=== PATIENT | male | born 1960 ===

== ENCOUNTER 2023-06-15 11:40 | Outpatient (AMB) | payer OTHER, SELFPAY ==
--- NOTE | 2023-06-15 11:45 | HO.NEPHOV_ITS ---
HPI HPI Comments History of Present Illness Details I had the privilege of seeing Anshul in follow-up of his mild chronic kidney disease and recurrent nephrolithiasis. He still has ongoing renal stone issue. He follows up with a urologist. He has not tolerated chlorthalidone in the past(he thinks it is causing him pedal edema). He continues to take potassium citrate. He does not have any fever, suprapubic pain, flank pain, hematuria, nausea, vomiting, shortness of breath, pedal edema, orthostatic symptoms at this visit. He is compliant with his medications. He keeps himself hydrated well. He avoids nonsteroidal anti-inflammatory medications. [facility] Medical History (Updated 06/15/23 @ 12:10 by Miguel Patricia MD) Renal cyst Hypertension Calculus of kidney Chronic kidney disease, stage 2 (mild) Surgical History (Updated 06/15/23 @ 11:54 by Joy Rios MA) History of eye surgery H/O endoscopy H/O colonoscopy History of tonsillectomy History of kidney surgery Family History Mother Hypertension Father Hypertension Social History (Updated 06/15/23 @ 11:53 by Joy Rios MA) Alcohol intake: never Patient Tobacco Use Status: Never used Tobacco Vital Signs 06/15/23 11:49 Height 5 ft 8 in Weight 212 lb 6 oz BMI 32.3 BP 134/80 Blood Pressure Location Lt brachial Position Sitting Pulse 106 H Pulse Source Pulse Oximeter Physical Exam Vital Signs: Last Vital Signs Pulse 106 H 06/15/23 11:49 BP 134/80 06/15/23 11:49 BMI result Body Mass Index 32.3 Const General: comfortable and no acute distress Orientation/consciousness: patient oriented x3 HEENT Head: Yes normocephalic Mouth: Normal oral and palatal mucosa present Eyes EOM: EOMs intact bilaterally Neck Neck: Yes supple Resp Auscultation: clear to auscultation bilaterally Cardio Jugular venous distension: no JVD Rate: regular rate GI Palpation (GI): Soft to palpation Auscultation: normal bowel sounds General: Yes no CVA tenderness Back/Spine/Pelvis Back: no CVA tenderness Skin General skin exam: no rashes or lesions noted Neuro General: patient oriented x3 and moves all extremities Extrem General: Yes no pedal edema Assessment & Plan Assessment & Plan (1) Calculus of kidney: Code(s): N20.0 - Calculus of kidney Plan Anshul has mild CKD which had been stable at baseline. He has recurrent nephrolithiasis. He had multiple ESWL 's. He has not tolerated hydrochlorothiazide or chlorthalidone in the past(he feels both of them are causing leg swellings). He is on potassium citrate. He follows up with urologist. He should cut back animal protein in the diet . He should maintain low-salt diet. He is maintaining good hydration. He is avoiding nonsteroidal anti-inflammatory medications. His blood pressure has been at goal. He is not known to have any significant proteinuria. I did not make any medication changes today. I refilled his potassium citrate today. All his questions and concerns were addressed. Time spent retrieving data, clinical encounter and documentation 23 minutes. Follow-up given. Orders: Orders Electrolytes Today N20.0 - Calculus of kidney Creatinine Today N20.0 - Calculus of kidney Blood Urea Nitrogen Today N20.0 - Calculus of kidney Medications: New potassium citrate ER 15 mEq PO DAILY 30 tabs 11RF 30 days Coding Level of Care Code Est Pt Level 3 (81949) Diagnoses Calculus of kidney N20.0 Results Reviewed Nephrology Results: No Data to Display
[2023-06-15 11:49] VITALS: BP 134/80; PULSE 106; BMI 32.3
== END 2023-06-15 12:13 | disposition home or self-care (01) ==
PROVIDERS: PCP Internal Medicine; Visit Provider Internal Medicine Nephrology
DX: N20.0 Calculus of kidney (principal)
CPT/HCPCS: 99213

== ENCOUNTER → 2023-06-15 11:40 | Outpatient (BNVA) | payer OTHER, SELFPAY | PROVIDERS: PCP Internal Medicine; Visit Provider Internal Medicine Nephrology | DX: N20.0 Calculus of kidney (principal) | CPT/HCPCS: 99212 ==

== ENCOUNTER 2023-10-20 13:50 | Outpatient (AMB) | payer OTHER, SELFPAY ==
[2023-10-20 14:17] VITALS: BP 124/80; PULSE 88; O2SAT 95; BMI 32.2
--- NOTE | 2023-10-20 14:17 | HO.NEPHOV_ITS ---
HPI HPI Comments History of Present Illness Details I had the privilege of seeing Anshul in follow-up of his mild chronic kidney disease and recurrent nephrolithiasis. He still has ongoing renal stone issue. He follows up with a urologist. He has not tolerated chlorthalidone in the past(he thinks it is causing him pedal edema). He continues to take potassium citrate. He does not have any fever, suprapubic pain, flank pain, hematuria, nausea, vomiting, shortness of breath, pedal edema, orthostatic symptoms at this visit. He is compliant with his medications. He keeps himself hydrated well. He avoids nonsteroidal anti-inflammatory medications. [facility] Medical History (Updated 10/20/23 @ 14:27 by Miguel Patricia MD) Renal cyst Hypertension Calculus of kidney Chronic kidney disease, stage 2 (mild) Surgical History History of neck surgery History of eye surgery H/O endoscopy H/O colonoscopy History of tonsillectomy History of kidney surgery Family History Mother Hypertension Father Hypertension Social History Alcohol intake: never Patient Tobacco Use Status: Never used Tobacco Vital Signs 10/20/23 14:17 Height 5 ft 8 in Weight 211 lb 8 oz BMI 32.2 BP 124/80 Blood Pressure Location Lt brachial Position Sitting Pulse 88 Pulse Source Pulse Oximeter Pulse Oximetry (%) 95 Oxygen Delivery Method Room Air Physical Exam Vital Signs: Last Vital Signs Pulse 88 10/20/23 14:17 BP 124/80 10/20/23 14:17 Pulse Ox 95 10/20/23 14:17 Oxygen Delivery Method Room Air 10/20/23 14:17 BMI result Body Mass Index 32.2 Const General: comfortable and no acute distress Orientation/consciousness: patient oriented x3 HEENT Head: Yes normocephalic Mouth: Normal oral and palatal mucosa present Eyes EOM: EOMs intact bilaterally Neck Neck: Yes supple Resp Auscultation: clear to auscultation bilaterally Cardio Jugular venous distension: no JVD Rate: regular rate GI Palpation (GI): Soft to palpation Auscultation: normal bowel sounds General: Yes no CVA tenderness Back/Spine/Pelvis Back: no CVA tenderness Skin General skin exam: no rashes or lesions noted Neuro General: patient oriented x3 and moves all extremities Extrem General: Yes no pedal edema Assessment & Plan Assessment & Plan (1) Calculus of kidney: Code(s): N20.0 - Calculus of kidney (2) Renal cyst: Code(s): N28.1 - Cyst of kidney, acquired (3) Chronic kidney disease, stage 2 (mild): Code(s): N18.2 - Chronic kidney disease, stage 2 (mild) Sera Landers has mild CKD which had been stable at baseline. He has recurrent nephrolithiasis. He had multiple ESWL 's. He has not tolerated hydrochlorothiazide or chlorthalidone in the past(he feels both of them are causing leg swellings). He is on potassium citrate. He doesn't want any higher dose. He follows up with urologist. He should cut back animal protein in the diet . He should maintain low-salt diet. He is maintaining good hydration. He is avoiding nonsteroidal anti-inflammatory medications. His blood pressure has been at goal. He is not known to have any significant proteinuria. I did not make any medication changes today. labs ordered. All his questions and concerns were addressed. Orders: Orders Calcium Today N18.2 - Chronic kidney disease, stage 2 (mild), N20.0 - Calculus of kidney, N28.1 - Cyst of kidney, acquired Electrolytes Today N18.2 - Chronic kidney disease, stage 2 (mild), N20.0 - Calculus of kidney, N28.1 - Cyst of kidney, acquired Blood Urea Nitrogen Today N18.2 - Chronic kidney disease, stage 2 (mild), N20.0 - Calculus of kidney, N28.1 - Cyst of kidney, acquired Creatinine Today N18.2 - Chronic kidney disease, stage 2 (mild), N20.0 - Calculus of kidney, N28.1 - Cyst of kidney, acquired Coding Level of Care Code Est Pt Level 4 (49702) Diagnoses Calculus of kidney N20.0 Renal cyst N28.1 Chronic kidney disease, stage 2 (mild) N18.2 Results Reviewed Nephrology Results: No Data to Display
== END 2023-10-20 14:53 | disposition home or self-care (01) ==
PROVIDERS: PCP Internal Medicine; Visit Provider Internal Medicine Nephrology
DX: N20.0 Calculus of kidney (principal); N28.1 Cyst of kidney, acquired; N18.2 Chronic kidney disease, stage 2 (mild)
CPT/HCPCS: 99214

== ENCOUNTER → 2023-10-20 13:50 | Outpatient (BNVA) | payer OTHER, SELFPAY | PROVIDERS: PCP Internal Medicine; Visit Provider Internal Medicine Nephrology | DX: N20.0 Calculus of kidney (principal); N18.2 Chronic kidney disease, stage 2 (mild); N28.1 Cyst of kidney, acquired | CPT/HCPCS: 36415; 80051; 82310; 82565; 84520; 99212 ==

== ENCOUNTER 2023-10-20 15:07 | Outpatient (REF) | payer OTHER, SELFPAY ==
[2023-10-20 19:41] LABS: Anion Gap 15 (12-20); Blood Urea Nitrogen 15 mg/dL (9-16); Calcium 10.1 mg/dL (8.4-10.2); Carbon Dioxide 27 mmol/L (22-29); Chloride 104 mmol/L (96-108); Estimated Glomerular Filt Rate 52; Potassium 4.4 mmol/L (3.3-5.1); Sodium 142 mmol/L (135-145)
== END 2023-10-20 15:08 | disposition home or self-care (01) ==
LOC: HO.HKASLDS 15:07
PROVIDERS: Visit Provider Internal Medicine Nephrology
DX: Z13.89 Encounter for screening for other disorder (principal)
CPT/HCPCS: 36415; 80051; 82310; 82565; 84520

== ENCOUNTER 2024-03-08 11:34 | Outpatient (AMB) | payer OTHER, SELFPAY ==
--- NOTE | 2024-03-08 12:11 | HO.NEPHOV ---
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 Required: No Accompanied by: Self / Same As Patient Allergies hydrochlorothiazide Allergy (Unknown, Verified 03/08/24 12:14) EDEMA ibuprofen [From MOTRIN] Allergy (Unknown, Verified 03/08/24 12:14) AFFECTS KIDNEYS,SEVERE REACTION acetaminophen Allergy (Verified 03/08/24 12:14) Unknown clonidine Allergy (Verified 03/08/24 12:14) Unknown gabapentin Allergy (Verified 03/08/24 12:14) Unknown melatonin Allergy (Verified 03/08/24 12:14) Unknown naproxen Allergy (Verified 03/08/24 12:14) Unknown oxycodone Allergy (Verified 03/08/24 12:14) Unknown quetiapine Allergy (Verified 03/08/24 12:14) Unknown HPI Comments Details: I had the privilege of seeing Anshul in follow-up of his mild chronic kidney disease and recurrent nephrolithiasis. He still has ongoing renal stone issue. He follows up with a urologist. He has not tolerated chlorthalidone in the past(he thinks it is causing him pedal edema). He continues to take potassium citrate. He does not have any fever, suprapubic pain, flank pain, hematuria, nausea, vomiting, shortness of breath, pedal edema, orthostatic symptoms at this visit. He is compliant with his medications. He keeps himself hydrated well. He avoids nonsteroidal anti-inflammatory medications. He was started on Allopurinol by Urologist in [place] ( [facility] [place]) but he is not taking it( concerned about side effects). [facility] Medical History (Updated 10/20/23 @ 14:27 by Miguel Patricia MD) Renal cyst Hypertension Calculus of kidney Chronic kidney disease, stage 2 (mild) Surgical History History of neck surgery History of eye surgery H/O endoscopy H/O colonoscopy History of tonsillectomy History of kidney surgery Family History Mother Hypertension Father Hypertension Social History Alcohol intake: never Patient Tobacco Use Status: Never used Tobacco Review of Systems Const All systems reviewed & are unremarkable except as noted in HPI and below Physical Exam Vital Signs: Last Vital Signs Pulse 98 03/08/24 12:12 BP 124/80 03/08/24 12:12 Pulse Ox 94 03/08/24 12:12 Oxygen Delivery Method Room Air 03/08/24 12:12 BMI result Body Mass Index 31.5 Const General: comfortable and no acute distress Orientation/consciousness: patient oriented x3 HEENT Head: Yes normocephalic Mouth: Normal oral and palatal mucosa present Eyes EOM: EOMs intact bilaterally Neck Neck: Yes supple Resp Auscultation: clear to auscultation bilaterally Cardio Jugular venous distension: no JVD Rate: regular rate GI Palpation (GI): Soft to palpation Auscultation: normal bowel sounds General: Yes no CVA tenderness Back/Spine/Pelvis Back: no CVA tenderness Skin General skin exam: no rashes or lesions noted Neuro General: patient oriented x3 and moves all extremities Extrem General: Yes no pedal edema Results Reviewed Nephrology Results: Sodium 142 mmol/L (135-145) 10/20/23 Potassium 4.4 mmol/L (3.3-5.1) 10/20/23 Chloride 104 mmol/L (96-108) 10/20/23 Carbon Dioxide 27 mmol/L (22-29) 10/20/23 BUN 15 mg/dL (9-16) 10/20/23 Creatinine 1.37 mg/dL (0.5-1.4) 10/20/23 Calcium 10.1 mg/dL (8.4-10.2) 10/20/23 Assessment & Plan Assessment & Plan (1) Renal cyst: Code(s): N28.1 - Cyst of kidney, acquired Category: Medical (2) Chronic kidney disease, stage 2 (mild): Code(s): N18.2 - Chronic kidney disease, stage 2 (mild) Category: Medical (3) Calculus of kidney: Code(s): N20.0 - Calculus of kidney Category: Medical Plan Anshul has mild CKD which had been stable at baseline. He has recurrent nephrolithiasis. He had multiple ESWL 's. He has not tolerated hydrochlorothiazide or chlorthalidone in the past(he feels both of them are causing leg swellings). He is on potassium citrate. He doesn't want any higher dose. He follows up with urologist. He should cut back animal protein in the diet . He should maintain low-salt diet. He is maintaining good hydration. He is avoiding nonsteroidal anti-inflammatory medications. His blood pressure has been at goal. He is not known to have any significant proteinuria. I did not make any medication changes today. labs ordered. All his questions and concerns were addressed. Orders: Orders Uric Acid Today N20.0 - Calculus of kidney Creatinine Today N20.0 - Calculus of kidney Blood Urea Nitrogen Today N20.0 - Calculus of kidney Electrolytes Today N20.0 - Calculus of kidney Calcium Today N20.0 - Calculus of kidney Coding Level of Care Code Est Pt Level 4 (05073) Diagnoses Renal cyst N28.1 Chronic kidney disease, stage 2 (mild) N18.2 Calculus of kidney N20.0
[2024-03-08 12:12] VITALS: BP 124/80; PULSE 98; O2SAT 94; BMI 31.5
== END 2024-03-08 12:42 | disposition home or self-care (01) ==
PROVIDERS: PCP Internal Medicine; Visit Provider Internal Medicine Nephrology
DX: N28.1 Cyst of kidney, acquired (principal); N18.2 Chronic kidney disease, stage 2 (mild); N20.0 Calculus of kidney
CPT/HCPCS: 99214

== ENCOUNTER → 2024-03-08 11:34 | Outpatient (BNVA) | payer OTHER, SELFPAY | PROVIDERS: PCP Internal Medicine; Visit Provider Internal Medicine Nephrology | DX: N28.1 Cyst of kidney, acquired (principal); N18.2 Chronic kidney disease, stage 2 (mild); N20.0 Calculus of kidney | CPT/HCPCS: 99212 ==

== ENCOUNTER 2024-09-06 10:33 | Outpatient (AMB) | payer OTHER, SELFPAY ==
--- NOTE | 2024-09-06 10:52 | HO.NEPHOV ---
Vital Signs 09/06/24 10:57 Height 5 ft 8 in Weight 211 lb 2 oz BMI 32.1 BP 140/70 H Blood Pressure Location Lt brachial Position Sitting Pulse 101 H Pulse Source Pulse Oximeter Pulse Oximetry (%) 96 Oxygen Delivery Method Room Air Intake Visit Reasons: 6 mon follow up-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 Required: No Accompanied by: Self / Same As Patient Allergies hydrochlorothiazide Allergy (Unknown, Verified 09/06/24 10:56) EDEMA ibuprofen [From MOTRIN] Allergy (Unknown, Verified 09/06/24 10:56) AFFECTS KIDNEYS,SEVERE REACTION acetaminophen Allergy (Verified 09/06/24 10:56) Unknown clonidine Allergy (Verified 09/06/24 10:56) Unknown gabapentin Allergy (Verified 09/06/24 10:56) Unknown melatonin Allergy (Verified 09/06/24 10:56) Unknown naproxen Allergy (Verified 09/06/24 10:56) Unknown oxycodone Allergy (Verified 09/06/24 10:56) Unknown quetiapine Allergy (Verified 09/06/24 10:56) Unknown HPI Comments Details: Anshul was seen in follow-up of his mild chronic kidney disease and recurrent nephrolithiasis. He still has ongoing renal stone issue. He follows up with a urologist. He has not tolerated chlorthalidone in the past(he thinks it is causing him pedal edema). He continues to take potassium citrate. He does not have any fever, suprapubic pain, flank pain, hematuria, nausea, vomiting, shortness of breath, pedal edema, orthostatic symptoms at this visit. He is compliant with his medications. He keeps himself hydrated well. He avoids nonsteroidal anti-inflammatory medications. He was started on Allopurinol by Urologist in [place] ( [facility] [place]) but he is not taking it( concerned about side effects). [facility] Medical History (Updated 10/20/23 @ 14:27 by Miguel Patricia MD) Renal cyst Hypertension Calculus of kidney Chronic kidney disease, stage 2 (mild) Surgical History History of neck surgery History of eye surgery H/O endoscopy H/O colonoscopy History of tonsillectomy History of kidney surgery Family History Mother Hypertension Father Hypertension Social History Alcohol intake: never Patient Tobacco Use Status: Never used Tobacco Review of Systems Const All systems reviewed & are unremarkable except as noted in HPI and below Physical Exam Vital Signs: Last Vital Signs Pulse 101 H 09/06/24 10:57 BP 140/70 H 09/06/24 10:57 Pulse Ox 96 09/06/24 10:57 Oxygen Delivery Method Room Air 09/06/24 10:57 BMI result Body Mass Index 32.1 Const General: comfortable and no acute distress Orientation/consciousness: patient oriented x3 HEENT Head: Yes normocephalic Mouth: Normal oral and palatal mucosa present Eyes EOM: EOMs intact bilaterally Neck Neck: Yes supple Resp Auscultation: clear to auscultation bilaterally Cardio Jugular venous distension: no JVD Rate: regular rate GI Palpation (GI): Soft to palpation Auscultation: normal bowel sounds General: Yes no CVA tenderness Back/Spine/Pelvis Back: no CVA tenderness Skin General skin exam: no rashes or lesions noted Neuro General: patient oriented x3 and moves all extremities Extrem General: Yes no pedal edema Assessment & Plan Assessment & Plan (1) Chronic kidney disease, stage 2 (mild): Code(s): N18.2 - Chronic kidney disease, stage 2 (mild) Category: Medical (2) Renal cyst: Code(s): N28.1 - Cyst of kidney, acquired Category: Medical (3) Calculus of kidney: Code(s): N20.0 - Calculus of kidney Category: Medical Plan Anshul has mild CKD which had been stable at baseline. He has recurrent nephrolithiasis. He had multiple ESWL 's. He has not tolerated hydrochlorothiazide or chlorthalidone in the past(he feels both of them are causing leg swellings). He is on potassium citrate. He doesn't want any higher dose. He follows up with urologist. He should cut back animal protein in the diet . He should maintain low-salt diet. He is maintaining good hydration. He is avoiding nonsteroidal anti-inflammatory medications. His blood pressure has been at goal. He is not known to have any significant proteinuria. I did not make any medication changes today. labs ordered. All his questions and concerns were addressed. Orders: Orders Creatinine 6 Months N18.2 - Chronic kidney disease, stage 2 (mild), N20.0 - Calculus of kidney, N28.1 - Cyst of kidney, acquired Blood Urea Nitrogen 6 Months N18.2 - Chronic kidney disease, stage 2 (mild), N20.0 - Calculus of kidney, N28.1 - Cyst of kidney, acquired Electrolytes 6 Months N18.2 - Chronic kidney disease, stage 2 (mild), N20.0 - Calculus of kidney, N28.1 - Cyst of kidney, acquired Coding Level of Care Code Est Pt Level 4 (89663) Diagnoses Chronic kidney disease, stage 2 (mild) N18.2 Renal cyst N28.1 Calculus of kidney N20.0
[2024-09-06 10:57] VITALS: BP 140/70; PULSE 101; O2SAT 96; BMI 32.1
--- OUTSIDE RECORDS SUMMARY | 2024-09-06 12:54 | XMS_ITS | Encounter Summary ---
Author Organization [facility] Address [address] [place] [address] Care Team Providers Care Utility Driver Name Role Phone Moris Benedict MD Primary Care Provider [phone] Reason for Visit * Reason Onset Date Comments Fitting for DME 08/24/2024 Encounter Details Date Type Department Care Team ([facility] st Contact Info) Description 08/24[facility]2024 [facility] [address] [place] [phone] Moris Benedict MD [address] [place] [phone] Fitting for DME Social History Tobacco Use Types Packs/Day Years Used Date Smoking Tobacco: Former Cigarettes 1.5 47 0 07/06/1971 - 07/06/2018 Smokeless Tobacco: Never Alcohol Use Standard Drinks/Week Comments Yes 0 (1 standard drink = 0.6 oz pur e alcohol) Sex and Gender Information Value Date Recorded Sex Assigned at Male 08/09/2024 2:27 PM EST Legal Sex Male 4:56 AM EST Gender Identity Male 08/09/2024 2:27 PM EST Sexual Orientation Straight 08/09/2024 2: 27 PM EST documented as of this encounter Progress Notes * Reinaldo Qureshi MA - 08/29/2024 2:30 PM EST Durable medical equipment prescription request has been faxed to the DME Company : [employer] BP monitor With cover sheet, demographics and karma notes Confirmation was received * Reinaldo Qureshi MA - 08/29/2024 10:54 AM EST DME/Form/Rx placed in providers office bin awaiting signature * Da Vaughan - 08/24/2024 12:20 PM EST DME REQUEST Name of Product: Blood Pressure Cuff Specific information about product n/a # Needed 1 Reason patient is asking for this supply? High blood pressure Have you received this supply before? If yes , when?: No Have you discussed the need for this supply with a provider at a recent visit? If yes, with who andwhen? Yes. 08/09/24 Moris Benedict When completed: Fax to other office/MD/pharmacy at fax # [employer]via Allmoxy Pierpont Have you told the patient it will take 7-10 days for completion of this request? Yes documented in this encounter Plan of Treatment Upcoming Encounters Date Type Department Care Team (Late st Contact Info) Description 09/07/2024 1:30 PM EST Office Visit [facility] Hematology Oncology [address] [place] [phone] Angel Enrique MD [address] [place] [address] 09/27/2024 1:15 PM EDT Office Visit Internal Medicine - [address] [phone] Moris Benedict MD [address] [place] [phone] 11/01/2024 10:45 AM EDT Office Visit Pulmonolgy - [place] [address] [phone] Lazara Fernandez MD [address] [address] 11/30/2024 11:10 AM EDT Office Visit Gastroenterology - [address] [place] [phone] Abigail Fragoso PA [address] [place] [address] documented as of this encounter Visit Diagnoses Diagnosis Essential hypertension- Primary Unspecified essential hypertension 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
--- OUTSIDE RECORDS SUMMARY | 2024-09-06 12:54 | XMS_ITS | Encounter Summary ---
Author Organization [facility] Address [id number] [place] [phone] Care Team Providers Care Plane Tableman Name Role Phone Moris Benedict MD Primary Care Provider [phone] Reason for Referral * Imaging (Routine) - Closed Specialty Diagnoses / Procedures Referred By Mignonac t Referred To Contact Radiology Diagnoses Calculus of kidney Procedures US Retroperitoneal Complete [facility] Stein MD [facility] [address] [address] Phone: tel: fax: [address] [address] Phone: tel: Referral ID Status Reason Start Date Expiration Date Visits Re quested Visits Authorized [id number] Closed 07/14/2024 07/14/2025 1 1 Reason for Visit * Imaging (Routine) - Closed Specialty Diagnoses / Procedures Referred By Oliver frances Referred To Contact Radiology Diagnoses Calculus of kidney Procedures US Retroperitoneal Complete Jon Stein MD [address] [address] Phone: tel: fax: [address] [address] Phone: tel: Referral ID Status Reason Start Date Expiration Date Visits Re quested Visits Authorized [id number] Closed 07/14/2024 07/14/2025 1 1 Encounter Details Date Type Department Care Team (Latest Contact Info) Description 08/15/2024 1:30 PM EST - 08/15/2024 11:59 PM EST Hospital Encounter [facility] [address] [place] [address] Calculus of kidney Discharge Disposition: Home or Self Care Social History Tobacco Use Types Packs/Day Years [...] PM EST documented as of this encounter Medications at Time of Discharge amLODIPine (NORVASC) 2.5 mg tablet Take 1 tablet (2.5 mg total) by mouth 1 (one) time each day. 30 each 5 08/09/2024 5 ammonium lactate (AMLACTIN) 12 % cream Apply bid 02/03/2023 atorvastatin (LIPITOR) 80 mg tablet Take 1 tablet (80 mg total) by mouth 1 (one) time each day. 08/06/2023 Combivent Respimat 20-100 mcg/actuation inhaler INHALE 1 PUFF INTO THE LUNGS EVERY 6 HOURS NEEDED FOR WHEEZING 4 g 1 08/10/2024 5 FLUoxetine (PROzac) 40 mg capsule Take 1 capsule (40 mg total) by mouth 1 (one) time each day. 08/06/2023 metoprolol succinate (TOPROL-XL) 25 mg 24 hr tablet Take 0.5 tablets (12.5 mg total) by mouth 1 (one) time each day. 08/06/2023 mometasone (ELOCON) 0.1 % cream Apply topically 2 times daily as needed. 02/03/2023 omeprazole (PriLOSEC) [address] capsule Take 1 capsule (20 mg total) by mouth daily. 09/05/2022 polyethylene glycol (MIRALAX) 17 gram packet MIX AND DRINK 1 PACKET BY MOUTH DAILY 28 each 5 08/09/2024 potassium citrate (UROCIT-K) 15 mEq SR tablet Take 1 tablet (15 mEq total) by mouth 1 (one) time each day. 02/04/2024 tamsulosin (FLOMAX) 0.4 mg 24 hr capsule Take 1 capsule (0.4 mg total) by mouth 1 (one) time each day. 01/11/2024 umeclidinium-dusty anteroL (Anoro Ellipta) 62.5-25 mcg/actuation inhaler INHALE 1 PUFF INTO THE LUNGS DAILY 1 each 05/30/2024 documented as of this encounter Discharge Disposition Disposition Code Departure Means Destination Home or Self Care documented in this encounter Plan of Treatment Upcoming Encounters Date Type Department Care Team (Late st Contact Info) Description 09/07/2024 1:30 PM EST Office Visit [facility] Hematology Oncology [address] [place] [phone] Angel Enrique MD [address] [place] [address] 09/27/2024 1:15 PM EDT Office Visit Internal Medicine - [address] [phone] Moris Benedict MD [address] [place] [address] 11/01/2024 10:45 AM EDT Office Visit Pulmonolgy - [place] [address] [phone] Lazara Fernandez MD [address] [phone] 11/30/2024 11:10 AM EDT Office Visit Gastroenterology [address] [phone] Abigail Fragoso PA [address] [place] [phone] documented as of this encounter Procedures Procedure Name Priority Date/Time Associated Diagnosis Comments US RETROPERITONEAL COMPLETE Routine 08/15/2024 2:00 PM EST Calculus of kidney documented in this encounter Results * US Retroperitoneal Complete (08/15/2024 2:00 PM EST) Anatomical Region Laterality Modality Body Ultrasound 08/16/2024 11:4 8 AM EST Impressions 08/16/2024 11:53 AM EST Normal ultrasound examination of the kidneys. Moderate right hydronephrosis seen on the prior study performed 12/29/2023 has completely resolved. The prostate gland is somewhat enlarged. Code 85854 G9551 -------- FINAL REPORT -------- Dictated By: Julius Soto Dictated Date: 08/16/2024 11:48 ET Assigned Physician: Julius Soto Reviewed and Electronically Signed By: Julius Soto Signed Date: 08/16/2024 11:53 ET Workstation ID: [id number] Transcribed By: Self Edit Transcribed Date: 08/16/2024 11:48 ET Narrative 08/16/2024 11:53 AM EST HISTORY: The patient is a 63-year-old male. Ultrasound examination of the kidneys performed 12/29/2023 demonstrated moderate right hydronephrosis due to a 1 cm diameter proximal right ureteral calculus. The patient now presents for follow-up. FINDINGS: Real-time ultrasonography of the kidneys is performed. The right kidney is normal in size and appearance, measuring 8.2 cm in length. There is normal cortical thickness and no mass or calculus is seen. Moderate hydronephrosis seen on the prior ultrasound examination performed 12/29/2023 has completely resolved. The proximal right ureteral calculus seen at that time is no longer demonstrated. The left kidney is normal in size and appearance, measuring 12.6 cm in length. There is normal cortical thickness and no mass, calculus, or hydronephrosis is seen. The 13 mm cyst at the upper pole demonstrated on the prior study is not seen currently. Normal bilateral ureteral jets are seen in the urinary bladder. It is noted that no right ureteral jet was seen on the prior examination. The prostate gland is somewhat enlarged, with a volume of 49.8 cc. Procedure Note Julius Soto MD - 08/16/2024 HISTORY: The patient is a 63-year-old male. Ultrasound examination of thekidneys performed 12/29/2023 demonstrated moderate right hydronephrosis dueto a 1 cm diameter proximal right ureteral calculus. The patient nowpresents for follow-up. FINDINGS: Real-time ultrasonography of the kidneys is performed. The rightkidney is normal in size and appearance, measuring 8.2 cm in length. Thereis normal cortical thickness and no mass or calculus is seen. Moderatehydronephrosis seen on the prior ultrasound examination performed12/29/2023 has completely resolved. The proximal right ureteral calculusseen at that time is no longer demonstrated. The left kidney is normal in size and appearance, measuring 12.6 cm inlength. There is normal cortical thickness and no mass, calculus, orhydronephrosis is seen. The 13 mm cyst at the upper pole demonstrated onthe prior study is not seen currently. Normal bilateral ureteral jets are seen in the urinary bladder. It isnoted that no right ureteral jet was seen on the prior examination. Theprostate gland is somewhat enlarged, with a volume of 49.8 cc. IMPRESSION: Normal ultrasound examination of the kidneys. Moderate righthydronephrosis seen on the prior study performed 12/29/2023 has completelyresolved. The prostate gland is somewhat enlarged. Code 61421 G9551 -------- FINAL REPORT -------- Dictated By: Julius Soto Dictated Date: 08/16/2024 11:48 ET Assigned Physician: Julius Soto Reviewed and Electronically Signed By: Julius Soto Signed Date: 08/16/2024 11:53 ET Workstation ID: [id number] Transcribed By: Self Edit Transcribed Date: 08/16/2024 11:48 ET us Jon Stein MD IMG US PROCEDURES Final Result documented in this encounter Visit Diagnoses Diagnosis Calculus of kidney documented in this encounter Care Teams Plane Tableman Relationship Specialty Start Date End Date Moris Benedict MD [address] [place] [phone] PCP - General Internal Medicine 01/10/15 documented as of this encounter
--- OUTSIDE RECORDS SUMMARY | 2024-09-06 12:55 | XMS_ITS | Encounter Summary ---
Author Organization [facility] Address [address] [place] [address] Care Team Providers Care Molded Parts Inspector Name Role Phone Moris Benedict MD Primary Care Provider [phone] Reason for Referral * Consultation (Routine) - Authorized Specialty Diagnoses / Procedures Referred By Oliver frances Referred To Contact Urology Diagnoses Deformity of erect penis Moris Benedict MD [address] [place] [address] Phone: tel: fax: [facility] [address] [facility] [address] [place] [address] Phone: tel: fax: Referral ID Status Reason Start Date Expiration Date Visits Requested Visits Authorized [id number] Authorized Specialty Services Required 08/09/2024 08/09/2025 1 1 * Consultation (Routine) - Authorized Specialty Diagnoses / Procedures Referred By Oliver frances Referred To Contact Otolaryngology Diagnoses Pulsatile tinnitus of left ear Moris Benedict MD [address] [place] [address] Phone: tel: fax: [facility] [address] [place] [address] Phone: tel: fax: Referral ID Status Reason Start Date Expiration Date Visits Requested Visits Authorized [id number] Authorized Specialty Services Required 08/09/2024 08/09/2025 1 1 Reason for Visit * Reason Comments Medication Visit C/o pain behind righ t ear, hemoptysis and epistaxis Encounter Details Date Type Department Care Team (Late st Contact Info) Description 08/09/2024 1:00 PM EST Office Visit Internal Medicine - [address] [phone] Moris Benedict MD [address] [place] [address] Pulsatile tinnitus of left ear (Primary Dx); Essential hypertension; Deformity of erect penis; Screening PSA (prostate specific antigen) Social History Tobacco Use Types Packs/Day Years Used Date Smoking Tobacco: Former Cigarettes 1.5 47 0 07/06/1971 - 07/06/2018 Smokeless Tobacco: Never Tobacco Cessation:Counseling Given: Not Answered Alcohol Use Standard Drinks/Week Comments Yes 0 (1 standard drink = 0.6 oz pur e alcohol) Sex and Gender Information Value Date Recorded Sex Assigned at Male 08/09/2024 2:27 PM EST Legal Sex Male 4:56 AM EST Gender Identity Male 08/09/2024 2:27 PM EST Sexual Orientation Straight 08/09/2024 2: 27 PM EST documented as of this encounter Last Filed Vital Signs Vital Sign Reading Time Taken Comments Blood Pressure 151/113 08/09/2024 12:51 PM EST Pulse 98 08/09/2024 12:51 PM EST Temperature - - Respiratory Rate - - Oxygen Saturation - - Inhaled Oxygen Concentration - - Weight 94.8 kg (209 lb 1.6 oz) 08/09/2024 12:51 PM EST Height 172.7 cm (5' 8 ) 08/09/2024 12:51 PM EST Body Mass Index 31.79 08/09/2024 12:51 PM EST documented in this encounter Ordered Prescriptions Prescription Sig Dispense Quantity Refills Last Filled Start Date End Date amLODIPine (NORVASC) 2.5 mg tablet Take 1 tablet (2.5 mg total) by mouth 1 (one) time each day. 30 each 5 08/09/2024 02/05/2025 documented in this encounter Progress Notes * Moris Benedict MD - 08/09/2024 1:00 PM EST CHIEF COMPLAINT: Chief Complaint Patient presents with Medication Visit C/o pain behind right ear, hemoptysis and epistaxis IDENTIFIER: Anshul Michaels. 63 y.o.. HPI: History of Present Illness The patient presents for a regular checkup as well as evaluation of pulsating ear sensation, hypertension, and penile deformity. He reports experiencing intermittent episodes of blood discharge from his ear, accompanied by a pulsating sensation. This symptom has been persistent for several months but has recently escalated in severity. He also describes a similar pulsating sensation in the posterior aspect of his head, whichis associated with pain. He does not experience any headaches. He does not monitor his blood pressure at home due to the lack of a blood pressure cuff. He expresses concern about potential prostate cancer, citing irregularities in his penile anatomy. He recalls a previous episode of kidney stones, during which he noticed the development of a bump onhis penis. Currently, he perceives the presence of a lump when his penis is erect. He is under the care of Dr. Stein for his kidney disease, who also performed surgery for his kidney stones. MEDICATIONS Metoprolol. PAST MEDICAL HISTORY: Past Medical History: Diagnosis Date Anxiety and depression 12/25/2014 DX:Anxiety and depression Chronic back pain 12/25/2014 DX:Chronic back pain CKD (chronic kidney disease) 12/25/2014 DX:CKD (chronic kidney disease) Colonic polyp 01/10/2015 DX:Colonic polyp COPD (chronic obstructive pulmonary disease) ([facility]) DX:COPD (chronic obstructive pulmonary disease) ([facility]) Elevated ferritin level 07/09/2021 DX:Elevated ferritin level; COMMENT: Lab Results Component Value Date FERR 1048 07/02/2021 Gallstones DX:Gallstones GERD (gastroesophageal reflux disease) 12/25/2014 DX:GERD (gastroesophageal reflux disease) Glaucoma DX:Glaucoma Helicobacter pylori infection 06/28/2007 DX:Helicobacter pylori infection; COMMENT: Gastric biopsy consistent with chronic gastritis with mild activity and positive for H. pylori infection. History of nephrolithiasis 12/25/2014 DX:History of nephrolithiasis Hypertension 12/25/2014 DX:Hypertension Kidney stones DX:Kidney stones MGUS (monoclonal gammopathy of unknown significance) 07/10/2021 DX:MGUS (monoclonal gammopathy of unknown significance); COMMENT: IgM Lambda monoclonal immunoglobulins Patient seen for heme-onc consultation on 09/30/2019. NAFLD (nonalcoholic fatty liver disease) 02/23/2017 DX:NAFLD (nonalcoholic fatty liver disease) PAST SURGICAL HX: Past Surgical History: Procedure Laterality Date COLONOSCOPY 08/15/2014 PROCEDURE: HISTORICAL COLONOSCOPY; COMMENT: Dr. Temple - 5 mm tubular adenoma of the descending colon, sigmoid diverticulosis, otherwise normal. Repeat colonoscopy in 5 years. COLONOSCOPY 05/11/2009 PROCEDURE: HISTORICAL COLONOSCOPY; COMMENT: Diverticulosis, otherwise normal. Repeat in 5 years. COLONOSCOPY 06/25/2007 PROCEDURE: HISTORICAL COLONOSCOPY; COMMENT: 6 tubular adenomatous polyps removed. Repeat in 2 years. EXCISION BENIGN SKIN LESION TRUNK / ARM / LEG Left 09/04/2023 PROCEDURE: CA EXCISION TUMOR SOFT TISSUE BACK/FLANK SUBQ <3CM KIDNEY STONE SURGERY 06/19/2014 PROCEDURE: CA NEPHROLITHOTOMY REMOVAL CALCULUS; COMMENT: PVU OTHER SURGICAL HISTORY Left PROCEDURE: CA INSJ IRIS PROSTH SECONDARY IO LENS PLMT/EXCHANGE; COMMENT: lens implant TONSILLECTOMY PROCEDURE: HISTORICAL TONSILLECTOMY SOCIAL HISTORY: FAMILY HISTORY: Family History Problem Relation Name Age of Onset Other (Other: Lung cancer (smoker)) Brother Other (Other: Cancer) Paternal Grandmother Other (Other: Cancer) Uncle Other (Other: Pancreatic cancer) Aunt Paternal Heart attack Father MEDICATIONS DISCONTINUED/REORDERED: There are no discontinued medications. ACTIVE MEDICATIONS: Current Outpatient Medications on File Prior to Visit Medication Sig Dispense Refill ammonium lactate (AMLACTIN) 12 % cream Apply bid atorvastatin (LIPITOR) 80 mg tablet Take 1 tablet (80 mg total) by mouth 1 (one) time each day. FLUoxetine (PROzac) 40 mg capsule Take 1 capsule (40 mg total) by mouth 1 (one) time each day. ipratropium-albuteroL (Combivent Respimat) 20-100 mcg/actuation inhaler INHALE 1 PUFF INTO THE LUNGS EVERY 6 HOURS NEEDED FOR WHEEZING 4 g 1 metoprolol succinate (TOPROL-XL) 25 mg 24 hr tablet Take 0.5 tablets (12.5 mg total) by mouth 1 (one) time each day. mometasone (ELOCON) 0.1 % cream Apply topically 2 times daily as needed. omeprazole (PriLOSEC) [address] capsule Take 1 capsule (20 mg total) by mouth daily. polyethylene glycol (MIRALAX) 17 gram packet MIX AND DRINK 1 PACKET BY MOUTH DAILY potassium citrate (UROCIT-K) 15 mEq SR tablet Take 1 tablet (15 mEq total) by mouth 1 (one) time each day. tamsulosin (FLOMAX) 0.4 mg 24 hr capsule Take 1 capsule (0.4 mg total) by mouth 1 (one) time each day. umeclidinium-vilanteroL (Anoro Ellipta) 62.5-25 mcg/actuation inhaler INHALE 1 PUFF INTO THE LUNGS DAILY 1 each 11 [DISCONTINUED] POTASSIUM PO Take by mouth. (Patient not taking: Reported on 08/09/2024) [DISCONTINUED] traZODone (DESYREL) 50 mg tablet Take 1-2 tablets (50-100 mg total) by mouth. (Patient not taking: Reported on 08/09/2024) No current facility-administered medications on file prior to visit. ALLERGIES: Allergies Allergen Reactions Acetaminophen Aspirin Swelling Clonidine Gabapentin Hydrochloric Acid Hydrochlorothiazide Swelling Ibuprofen Melatonin Oxycodone Itching Quetiapine ROS: Constitutional: no weakness fever/ sweats, or weight change Eyes: no blurred vision,pain or discharge ENT: no mouth pain,oral bleeding, congestion or discharge Respiratory: no shortness of breath, cough or wheezing Cardiovascular:no chest pain or palpitations, no orthopnea or PND GI: no nausea, vomiting or diarrhea; no rectal bleeding or dark stools : no dysuria or frequency; no nocturia or hesitancy See hpi PHYSICAL EXAM: Vitals: 08/09/24 1251 BP: (!) 151/113 Pulse: 98 BMI PLAN BMI Body mass index is 31.79 kg/m??. General: the patient is in no acute distress.A & Ox 3 Head/Neck: neck supple auditory canal WNL Lungs: clear to percussion and auscultation. Heart: regular rhythm Abdominal exam; positive bowel sounds; soft, Extremities: no cyanosis, clubbing or edema. LABS: ordered IMPRESSION: Encounter Diagnoses Name Primary? Pulsatile tinnitus of left ear Yes Essential hypertension Deformity of erect penis Screening PSA (prostate specific antigen) PLAN: Assessment & Plan 1. Pulsating ear sensation: Chronic. - Referral to an Ear, Nose, and Throat (ENT) specialist for further evaluation. That is poorly controlled as the cause of his pulsatile sensation 2. Hypertension: Elevated. - Continue metoprolol. - Add amlodipine 2.5 mg. - Provide a blood pressure monitor for home use. - Target blood pressure set at 130/80. 3. Penile deformity. - Referral to a urologist for further assessment. - Order Prostate-Specific Antigen (PSA) test to screen for prostate cancer. Follow-up - Appointments to urology and ENT. - PSA test. PROCEDURE The patient underwent surgery for kidney stones in the past. Orders Placed This Encounter Procedures Blood pressure monitor Height: 1.727 m (68 ) Weight: 94.8 kg (209 lb 1.6 oz) Order Specific Question: Face to face evaluation was performed on Answer: 08/09/2024 Prostate specific antigen screen Standing Status: Future Number of Occurrences: 1 Standing Expiration Date: 08/09/2025 Ambulatory referral to ENT Standing Status: Future Standing Expiration Date: 08/09/2025 Referral Priority: Routine Referral Type: Consultation Referral Reason: Specialty Services Required Requested Specialty: Otolaryngology Number of Visits Requested: 1 Ambulatory referral to Urology Standing Status: Future Standing Expiration Date: 08/09/2025 Referral Priority: Routine Referral Type: Consultation Referral Reason: Specialty Services Required Requested Specialty: Urology Number of Visits Requested: 1 Additional Orders: None I have obtained verbal consent from Anshul Brando prior to the recording. I have advised Anshul Michaels that he may refuse the recording and require the recording to be turned off at any time during this encounter. Moris Benedict MD documented in this encounter Plan of Treatment Upcoming Encounters Date Type Department Care Team (Late st Contact Info) Description 09/07/2024 1:30 PM EST Office Visit [facility] Hematology Oncology [address] [place] [phone] Angel Enrique MD [address] [place] [address] 09/27/2024 1:15 PM EDT Office Visit Internal Medicine - [facility] [address] [place] [address] Moris Benedict MD [address] [place] [address] 11/01/2024 10:45 AM EDT Office Visit Pulmonolgy - [place] [address] [phone] Lazara Fernandez MD [address] [address] 11/30/2024 11:10 AM EDT Office Visit Gastroenterology - [place] 175 [facility] [address] [phone] Abigail Fragoso PA [address] [address] Scheduled Orders Name Type Priority Associated Diagnoses Orde r Schedule Prostate specific antigen screen Lab Routine Screening PSA (prostate specific antigen) 1 Occurrences starting 08/09/2024 until 08/09/2025 Scheduled Referrals Name Type Priority Associated Diagnoses Order Schedule Ambulatory referral to ENT Outpatient Referral Routine Pulsatile tinnitus of left ear 1 Occurrences starting 08/09/2024 until 08/09/2025 Ambulatory referral to Urology Outpatient Referral Routine Deformity of erect penis 1 Occurrences starting 08/09/2024 until 08/09/2025 documented as of this encounter Visit Diagnoses Diagnosis Pulsatile tinnitus of left ear- Primary Essential hypertension Unspecified essential hypertension Deformity of erect penis Screening PSA (prostate specific antigen) Special screening for malignant neoplasm of prostate documented in this encounter Discontinued Medications Medication Sig Discontinue Reason Start Date End Da te POTASSIUM PO Take by mouth. Therapy completed 08/09/2024 traZODone (DESYREL) 50 mg tablet Take 1-2 tablets (50-100 mg total) by mouth. Therapy completed 07/07/2023 08/09/2024 documented as of this encounter Historical Medications * This list may reflect changes made after this encounter. omeprazole (PriLOSEC) [address] capsule Take 1 capsule (20 mg total) by mouth daily. 09/05/2022 added in this encounter Orders General Supply Count Last Ordered Date First Or dered Date BLOOD PRESSURE MONITOR 1 08/09/2024 documented in this encounter Care Teams Molded Parts Inspector Relationship Specialty Start Date End Date Moris Benedict MD [address] [place] [phone] PCP - General Internal Medicine 01/10/15 documented as of this encounter
--- OUTSIDE RECORDS SUMMARY | 2024-09-06 12:55 | XMS_ITS | Clinical Summary ---
Author Organization 175 [facility] Address [address] [place] [address] Phone Care Team Providers Care Director Presales Name Role Phone Moris Benedict MD Primary Care Provider [phone] Allergies Active Allergy Reactions Criticality Noted Date Comments Acetaminophen 03/04/2016 Aspirin Swelling 09/30/2017 Clonidine 06/12/2014 Gabapentin 03/04/2016 Hydrochloric Acid 03/04/2016 Hydrochlorothiazide Swelling 09/17/2021 Ibuprofen 03/04/2016 Melatonin 06/12/2014 Oxycodone Itching 09/30/2017 Quetiapine 06/12/2014 Medications atorvastatin (LIPITOR) 80 mg tablet Take 1 tablet (80 mg total) by mouth 1 (one) time each day. 08/06/19 24 Active FLUoxetine (PROzac) 40 mg capsule Take 1 capsule (40 mg total) by mouth 1 (one) time each day. 08/06/19 24 Active metoprolol succinate (TOPROL-XL) 25 mg 24 hr tablet Take 0.5 tablets (12.5 mg total) by mouth 1 (one) time each day. 08/06/19 24 Active ammonium lactate (AMLACTIN) 12 % cream Apply bid 02/04/20 23 Active mometasone (ELOCON) 0.1 % cream Apply topically 2 times daily as needed. 02/04/20 23 Active potassium citrate (UROCIT-K) 15 mEq SR tablet Take 1 tablet (15 mEq total) by mouth 1 (one) time each day. 02/04/20 24 Active tamsulosin (FLOMAX) 0.4 mg 24 hr capsule Take 1 capsule (0.4 mg total) by mouth 1 (one) time each day. 01/11/20 24 Active umeclidinium-v ilanteroL (Anoro Ellipta) 62.5-25 mcg/actuation inhaler INHALE 1 PUFF INTO THE LUNGS DAILY 1 each 11 05/30/20 24 025 Active omeprazole (PriLOSEC) [address] capsule Take 1 capsule (20 mg total) by mouth daily. 09/06/19 23 Active amLODIPine (NORVASC) 2.5 mg tablet Take 1 tablet (2.5 mg total) by mouth 1 (one) time each day. 30 each 5 08/09/19 25 025 Active polyethylene glycol (MIRALAX) 17 gram packet MIX AND DRINK 1 PACKET BY MOUTH DAILY 28 each 5 08/09/19 25 Active Combivent Respimat 20-100 mcg/actuation inhaler INHALE 1 PUFF INTO THE LUNGS EVERY 6 HOURS NEEDED FOR WHEEZING 4 g 1 08/10/19 25 025 Active polyethylene glycol (MIRALAX) 17 gram packet MIX AND DRINK 1 PACKET BY MOUTH DAILY 08/06/19 24 025 Discontinued POTASSIUM PO Take by mouth. 025 Discontinued(Th erapy completed) traZODone (DESYREL) 50 mg tablet Take 1-2 tablets (50-100 mg total) by mouth. 07/07/19 24 025 Discontinued(Th erapy completed) ipratropium-al buteroL (Combivent Respimat) 20-100 mcg/actuation inhaler INHALE 1 PUFF INTO THE LUNGS EVERY 6 HOURS NEEDED FOR WHEEZING 4 g 1 05/30/20 24 025 Discontinued Active Problems Problem Noted Date Diagnosed Date Lipoma of skin and subcutaneous tissue of neck 0 03/08/2024 Overview (04/18/2024): bilateral Pre-diabetes 02/03/2023 Segura's esophagus without dysplasia 02/19/2022 Mixed hyperlipidemia 09/17/2021 MGUS (monoclonal gammopathy of unknown significa nce) 07/10/2021 Overview (04/18/2024): IgM Lambda monoclonal immunoglobulins Patient seen for heme-onc consultation on 09/30/2019. Elevated ferritin level 07/09/2021 Overview (04/18/2024): Lab Results Component Value Date FERR 1048 07/02/2021 Lab test negative for COVID-19 virus 07/01/2021 Liver lesion 07/09/2020 Overview (04/18/2024): Seen on [facility] ([facility]) September 2019. CT scan performed at [facility] on 10/02/2020 reveals evidence of fatty infiltration of the liver which is unchanged . There is also finding of a small 3 mm lesion in the left lobe of the liver that is unchanged and most likely an incidental cyst . No specific follow-up was recommended. Ultrasound of the liver at [facility] dated 11/01/2020 reveals an anechoic mass within the left lobe of the liver measuring 5 x 4 x 5 mm. Subcapsular surface is smooth. No focal intrahepatic mass. No intrahepatic biliary ductal dilatation. CT scan performed at [facility] on 01/05/2021 reveals a 4 mm hypoattenuating lesion in the left lobe is unchanged, too small to accurately characterize, possibly a cyst. No specific follow-up is recommended. SI (sacroiliac) joint dysfunction 06/20/2020 Positive MICAELA (antinuclear antibody) 08/01/2019 Obstructive uropathy 07/13/[address] of the chest 02/01/2019 Chronic obstructive pulmonary disease 02/01/2019 Pulmonary fibrosis 02/01/2019 Ground glass opacity present on imaging of lung 02/01/2019 Snoring 11/17/2018 Overview (04/18/2024): 11/2018 Polysomnogram did not reveal sleep apnea or nocturnal hypoxia. 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 Colonoscopies were completed by Dr. Temple. Patient reports next colonoscopy due in 2019. Lipoma 01/10/2015 Overview (04/18/2024): Last Assessment & Plan: Wound showed probably scar or organized hematoma underneath the incision. He has not the symptoms that he previously had and his wound looks good. No further action needed. He can follow-up as needed. Anxiety and depression 12/25/2014 Chronic back pain 12/25/2014 CKD (chronic kidney disease) 12/25/2014 Essential hypertension 12/25/2014 Gastroesophageal reflux disease 12/25/2014 Encounters Date Type Department Care Team Description 08/24/2024 Telephone [facility] - [facility] [address] [place] [phone] Moris Benedict MD Fitting for DME 08/15/2024 1:30 PM EST - 08/15/2024 11:59 PM EST Hospital Encounter [facility] Ultrasound [address] [place] [address] Calculus of kidney Discharge Disposition: Home or Self Care 08/09/2024 1:00 PM EST [facility] [address] [place] [phone] Moris Benedict MD Pulsatile tinnitus of left ear (Primary Dx); Essential hypertension; Deformity of erect penis; Screening PSA (prostate specific antigen) from Last 3 Months Immunizations Name Administration Dates Next Due TD, Adsorbed, Preservative Free 06/09/2018 Surgical History Surgery Date Site/Laterality Comments KIDNEY STONE SURGERY 06/19/2014 PROCEDURE: RI NEPHROLITHOTOMY REMOVAL CALCULUS; COMMENT: PVU COLONOSCOPY 08/15/2014 PROCEDURE: HISTORICAL COLONOSCOPY; COMMENT: Dr. Temple - 5 mm tubular adenoma of the descending colon, sigmoid diverticulosis, otherwise normal. Repeat colonoscopy in 5 years. COLONOSCOPY 05/11/2009 PROCEDURE: HISTORICAL COLONOSCOPY; COMMENT: Diverticulosis, otherwise normal. Repeat in 5 years. COLONOSCOPY 06/25/2007 PROCEDURE: HISTORICAL COLONOSCOPY; COMMENT: 6 tubular adenomatous polyps removed. Repeat in 2 years. TONSILLECTOMY PROCEDURE: HISTORICAL TONSILLECTOMY OTHER SURGICAL HISTORY Left PROCEDURE: RI INSJ IRIS PROSTH SECONDARY IO LENS PLMT/EXCHANGE; COMMENT: lens implant EXCISION BENIGN SKIN LESION TRUNK / ARM / LEG 09/04/2023 Left PROCEDURE: RI EXCISION TUMOR SOFT TISSUE BACK/FLANK SUBQ <3CM Medical History Medical History Date Comments Anxiety and depression 12/25/2014 DX:Anxiet y and depression CKD (chronic kidney disease) 12/25/2014 DX: CKD (chronic kidney disease) GERD (gastroesophageal reflu x disease) 12/25/2014 DX:GERD (gastroesophageal re flux disease) History of nephrolithiasis 12/25/2014 DX:Hi story of nephrolithiasis Chronic back pain 12/25/2014 DX:Chronic elisa k pain Hypertension 12/25/2014 DX:Hypertension Colonic polyp 01/10/2015 DX:Colonic polyp NAFLD (nonalcoholic fatty li prema disease) 02/23/2017 DX:NAFLD (nonalcoholic fatty liver disease) Helicobacter pylori infection 06/28/2007 DX :Helicobacter pylori infection; COMMENT: Gastric biopsy consistent with chronic gastritis with mild activity and positive for H. pylori infection. Elevated ferritin level 07/09/2021 DX:Herman erin ferritin level; COMMENT: Lab Results Component Value Date FERR 1048 07/02/2021 MGUS (monoclonal gammopathy of unknown significance) 07/10/2021 DX:MGUS (monoclonal gammopat hy of unknown significance); COMMENT: IgM Lambda monoclonal immunoglobulins Patient seen for heme-onc consultation on 09/30/2019. Gallstones DX:Gallstones COPD (chronic obstructive pu lmonary disease) (CMS/HCC) DX:COPD (chronic obstructive pulmonary disease) (HCC) Glaucoma DX:Glaucoma Kidney stones DX:Kidney stones Family History Medical History Relation Name Comments Other: Pancreatic cancer Aunt Paternal Other: Lung cancer (smoker) Brother Heart attack Father Other: Cancer Paternal Grandmother Other: Cancer Uncle Relation Name Status Comments Aunt Paternal Alive Brother Father Mother Alive Paternal Grandmother Uncle Social History Tobacco Use Types Packs/Day Years [...] Orientation Straight 08/09/2024 2: 27 PM EST Obstetrics History Last Filed Vital Signs Vital Sign Reading [...] Mass Index 31.79 08/09/2024 12:51 PM EST Plan of Treatment Upcoming Encounters Date Type Department Care Team (Late st Contact Info) Description 09/07/2024 1:30 PM EST Office Visit [facility] Hematology Oncology [address] [place] [phone] Angel Enrique MD [address] [place] [address] 09/27/2024 1:15 PM EDT Office Visit Internal Medicine - [address] [phone] Moris Benedict MD [address] [place] [phone] 11/01/2024 10:45 AM EDT Office Visit Pulmonolgy - [place] [address] [phone] Lazara Fernandez MD [address] [address] 11/30/2024 11:10 AM EDT Office Visit Gastroenterology - [place] [address] [phone] Abigail Fragoso PA [address] [address] Health Maintenance Due Date Last Done Comments COVID-19 Vaccine (#1) 10[birth year]12/1965 Hepatitis A Vaccines (1 of 2 - Risk 2-dose series) 10/12/1978 Pneumococcal Vaccine: 50+ Years (1 of 2 - PCV) 10/12/1978 Pneumococcal Vaccine: Pediatrics (0 to 5 Years) and At-Risk Patients (6 to 64 Years) (1 of 2 - PCV) 10/12/1978 Zoster Vaccines (1 of 2) 10/12/1978 Hepatitis B Vaccines (1 of 3 - Risk 3-dose series) 2019 RSV Immunization Patients 60+ Years Old (1 - Risk 60-74 years 1-dose series) 2019 Depression Screening 06/14/2022 HIV Screening 06/14/2022 Hepatitis C Screening 06/14/2022 Social Influencers of Health Screening 06/14/2022 Influenza Vaccine (#1) 2024 Lung Cancer Screening (Low Dose CT) 02/08/2025 02/09/2024, 02/05/2024, 02/03/2023, Additional history exists Hypertension/CHF/CAD Annual BMP Blood Test 08/24/2025 08/24/2024, 08/05/2024 Colorectal Cancer Screening: Colonoscopy 01/07/2027 Cholesterol Screening (Lipid Panel) 08/05/2029 08/05/2024 DTaP,Tdap,and Td Vaccines (2 - Td or Tdap) 01/12/2033 01/12/2023, 06/09/2018 HIB Vaccines Aged Out No longer eligi ble based on patient's age to complete this topic HPV Vaccines Aged Out No longer eligi ble based on patient's age to complete this topic IPV Vaccines Aged Out No longer eligi ble based on patient's age to complete this topic MMR Vaccines Aged Out No longer eligi ble based on patient's age to complete this topic Meningococcal ACWY Vaccine Aged Out N o longer eligible based on patient's age to complete this topic Meningococcal B Vacine Aged Out No lo nger eligible based on patient's age to complete this topic RSV Immunization Patients Under 20 months Aged Out No longer eligible based on patient's age to complete this topic Varicella Vaccines Aged Out No longer eligible based on patient's age to complete this topic Procedures Procedure Name Priority Date/Time Associated Diagnosis Comments CBC WITH AUTO DIFFERENTIAL Routine 08/24/2024 1:25 PM EST Monoclonal paraproteinemia Chronic kidney disease (CKD) stage G3a/A1, moderately decreased glomerular filtration rate (GFR) between 45-59 mL/min/1.73 square meter and albuminuria creatinine ratio less than 30 mg/g (CMS/HCC) Uric acid nephrolithiasis COMPREHENSIVE METABOLIC PANEL Routine 08/24/2024 1:25 PM EST Monoclonal paraproteinemia Chronic kidney disease (CKD) stage G3a/A1, moderately decreased glomerular filtration rate (GFR) between 45-59 mL/min/1.73 square meter and albuminuria creatinine ratio less than 30 mg/g (CMS/HCC) Uric acid nephrolithiasis CBC AND DIFFERENTIAL Routine 08/24/2024 1:25 PM EST Monoclonal paraproteinemia Chronic kidney disease (CKD) stage G3a/A1, moderately decreased glomerular filtration rate (GFR) between 45-59 mL/min/1.73 square meter and albuminuria creatinine ratio less than 30 mg/g (CMS/HCC) Uric acid nephrolithiasis IMMUNOGLOBULIN IGM Routine 08/24/2024 1: 25 PM EST Monoclonal paraproteinemia Chronic kidney disease (CKD) stage G3a/A1, moderately decreased glomerular filtration rate (GFR) between 45-59 mL/min/1.73 square meter and albuminuria creatinine ratio less than 30 mg/g (CMS/HCC) Uric acid nephrolithiasis US RETROPERITONEAL COMPLETE Routine 08/15/2024 2:00 PM EST Calculus of kidney LIPID PANEL WITH REFLEX TO DIRECT LDL Routine 08/05/2024 3:03 PM EST Diabetes mellitus, latent MICROALBUMIN CREATININE URINE RATIO Routine 08/05/2024 3:03 PM EST Diabetes mellitus, latent BASIC METABOLIC PANEL Routine 08/05/2024 3:03 PM EST Diabetes mellitus, latent HEMOGLOBIN A1C Routine 08/05/2024 3:03 PM EST Diabetes mellitus, latent CT LUNG SCREENING LOW DOSE Routine 02/09/2024 1:41 PM EDT Personal history of nicotine dependence from Last 3 Months or Most Recently Relevant to Health Maintenance Results * (ABNORMAL) CBC auto differential (08/24/2024 1:25 PM EST) [facility] Signature WBC 6.3 4.8 - 10.8 K/mcL LAB HEMETOLOGY METHOD 08/24/2024 3:25 PM [facility] RBC 5.00 4.50 - 5.50 M/mcL LAB HEMETOLOGY METHOD 08/24/2024 3:25 PM [facility] Hemoglobin 15.1 13.5 - 17.5 g/dL LAB HEMETOLOGY METHOD 08/24/2024 3:25 PM [facility] Hematocrit 48.5 42.0 - 54.0 % LAB HEMETOLOGY METHOD 08/24/2024 3:25 PM [facility] MCV 96.8 79.0 - 98.0 FL LAB HEMETOLOGY METHOD 08/24/2024 3:25 PM [facility] MCH 30.1 27.0 - 32.0 pcg LAB HEMETOLOGY METHOD 08/24/2024 3:25 PM [facility] MCHC 31.1(L) 32.0 - 37.0 g/dL LAB HEMETOLOGY METHOD 08/24/2024 3:25 PM [facility] RDW 12.6 11.0 - 15.0 % LAB HEMETOLOGY METHOD 08/24/2024 3:25 PM [facility] Platelets 308 130 - 400 K/mcL LAB HEMETOLOGY METHOD 08/24/2024 3:25 PM [facility] MPV 10.0 7.0 - 11.0 FL LAB HEMETOLOGY METHOD 08/24/2024 3:25 PM [facility] NRBC 0.0 <1.0 % LAB HEMETOLOGY METHOD 08/24/2024 3:25 PM [facility] NRBC Absolute 0.00 <0.10 K/mcL LAB HEMETOLOGY METHOD 08/24/2024 3:25 PM [facility] Neutrophils Relative 60.3 % LAB HEMETOLOGY METHOD 08/24/2024 3:25 PM [facility] Lymphocytes Relative 24.1 % LAB HEMETOLOGY METHOD 08/24/2024 3:25 PM [facility] Monocytes Relative 10.4 % LAB HEMETOLOGY METHOD 08/24/2024 3:25 PM [facility] Eosinophils Relative 3.3 % LAB HEMETOLOGY METHOD 08/24/2024 3:25 PM [facility] Basophils Relative 1.1 % LAB HEMETOLOGY METHOD 08/24/2024 3:25 PM [facility] Immature Granulocytes Relative 0.8 % LAB HEMETOLOGY METHOD 08/24/2024 3:25 PM [facility] Neutrophils Absolute 3.81 1.50 - 7.00 K/mcL LAB HEMETOLOGY METHOD 08/24/2024 3:25 PM [facility] Lymphocytes Absolute 1.52 1.00 - 5.00 K/mcL LAB HEMETOLOGY METHOD 08/24/2024 3:25 PM [facility] Monocytes Absolute 0.66 0.20 - 1.00 K/mcL LAB HEMETOLOGY METHOD 08/24/2024 3:25 PM [facility] Eosinophils Absolute 0.21 0.00 - 0.50 K/mcL LAB HEMETOLOGY METHOD 08/24/2024 3:25 PM [facility] Basophils Absolute 0.07 0.00 - 0.20 K/mcL LAB HEMETOLOGY METHOD 08/24/2024 3:25 PM [facility] Immature Granulocytes Absolute 0.05(H) 0.00 - 0.03 K/mcL LAB HEMETOLOGY METHOD 08/24/2024 3:25 PM EST [facility] Blood Venous blood specimen / Unknown Venipuncture / Unknown 08/24/2024 1:25 PM EST 08/24/2024 1:25 PM EST Angel Enrique MD LAB BLOOD ORDERABLES Final R esult Performing Organization Address City/[facility]/ZIP Co de Phone Number [facility] [address] [place] [address], [place] [phone] * (ABNORMAL) Immunoglobulin IgM (08/24/2024 1:25 PM EST) Pathologist [facility] IgM 1,360(H) 23 - 259 mg/dL LAB CHEMISTRY METHOD 08/24/2024 4:14 PM EST [facility] Comment:Results verified by repeat testing Blood Venous blood specimen / Unknown Venipuncture / Unknown 08/24/2024 1:25 PM EST 08/24/2024 1:25 PM EST Angel Enrique MD LAB BLOOD ORDERABLES Final R esult Performing Organization Address City/[facility] Co de Phone Number [facility] [address] [place] [address], [place] [phone] * (ABNORMAL) Comprehensive metabolic panel (08/24/2024 1:25 PM EST) Pathologist [facility] Sodium 138 133 - 145 mmol/L LAB CHEMISTRY METHOD 08/24/2024 4:14 PM EST [facility] Potassium 4.4 3.5 - 5.5 mmol/L LAB CHEMISTRY METHOD 08/24/2024 4:14 PM EST [facility] Chloride 101 96 - 110 mmol/L LAB CHEMISTRY METHOD 08/24/2024 4:14 PM EST [facility] CO2 32 21 - 32 mmol/L LAB CHEMISTRY METHOD 08/24/2024 4:14 PM [facility] Anion Gap 5 3 - 11 LAB CHEMISTRY METHOD 08/24/2024 4:14 PM [facility] Glucose 148(H) 70 - 100 mg/dL LAB CHEMISTRY METHOD 08/24/2024 4:14 PM [facility] BUN 18 5 - 25 mg/dL LAB CHEMISTRY METHOD 08/24/2024 4:14 PM [facility] Creatinine 1.46(H) 0.70 - 1.30 mg/dL LAB CHEMISTRY METHOD 08/24/2024 4:14 PM [facility] eGFR 53(L) >=60 mL/min/1. 73m2 LAB CHEMISTRY METHOD 08/24/2024 4:14 PM [facility] Comment:Calculation based on the??Chronic Kidney Disease Epidemiology Collaboration (CKD-EPI) equation refit??without adjustment for race. BUN/Creatinine Ratio 12.3 LAB CHEMISTRY METHOD 08/24/2024 4:14 PM [facility] Calcium 9.8 8.5 - 10.5 mg/dL LAB CHEMISTRY METHOD 08/24/2024 4:14 PM [facility] AST (SGOT) 17 10 - 42 unit/L LAB CHEMISTRY METHOD 08/24/2024 4:14 PM [facility] ALT (SGPT) 21 10 - 60 unit/L LAB CHEMISTRY METHOD 08/24/2024 4:14 PM [facility] Alkaline Phosphatase 176(H) 42 - 121 unit/L LAB CHEMISTRY METHOD 08/24/2024 4:14 PM [facility] Total Protein 8.5(H) 6.0 - 8.0 g/dL LAB CHEMISTRY METHOD 08/24/2024 4:14 PM [facility] Albumin 3.9 3.2 - 5.0 g/dL LAB CHEMISTRY METHOD 08/24/2024 4:14 PM [facility] Total Bilirubin 0.5 0.0 - 1.4 mg/dL LAB CHEMISTRY METHOD 08/24/2024 4:14 PM EST [facility] Blood Venous blood specimen / Unknown Venipuncture / Unknown 08/24/2024 1:25 PM EST 08/24/2024 1:25 PM EST us Angel Enrique MD LAB BLOOD ORDERABLES Final R esult [facility] [address] [place] [address], [place] [phone] * US Retroperitoneal Complete (08/15/2024 2:00 PM EST) Anatomical Region Laterality Modality Body Ultrasound 08/16/2024 11:4 8 AM EST Impressions 08/16/2024 11:53 AM EST Normal ultrasound examination of the kidneys. Moderate right hydronephrosis seen on the prior study performed 12/29/2023 has completely resolved. The prostate gland is somewhat enlarged. Code 49557 G9551 -------- FINAL REPORT -------- Dictated By: Julius Soto Dictated Date: 08/16/2024 11:48 ET Assigned Physician: Julius Soto Reviewed and Electronically Signed By: Julius Soto Signed Date: 08/16/2024 11:53 ET Workstation ID: [id number] Transcribed By: Self Edit Transcribed Date: 08/16/2024 [...] The prostate gland is somewhat enlarged. Code 80651 G9551 -------- FINAL REPORT -------- Dictated By: Julius Soto Dictated Date: 08/16/2024 11:48 ET Assigned Physician: Julius Soto Reviewed and Electronically Signed By: Julius Soto Signed Date: 08/16/2024 11:53 ET Workstation ID: [id number] Transcribed By: Self Edit Transcribed Date: 08/16/2024 11:48 ET Jon Stein MD [facility] US PROCEDURES Final Result * (ABNORMAL) Lipid panel with reflex to direct LDL (08/05/2024 3:03 PM EST) Cholesterol 190 0 - 200 mg/dL LAB CHEMISTRY METHOD 08/05/2024 6:41 PM EST [facility] Triglycerides 242(H) 0 - 150 mg/dL LAB CHEMISTRY METHOD 08/05/2024 6:41 PM EST [facility] HDL 38(L) >=40 mg/dL LAB CHEMISTRY METHOD 08/05/2024 6:41 PM EST [facility] LDL Calculated 104(H) 0 - 100 mg/dL LAB CHEMISTRY METHOD 08/05/2024 6:41 PM EST [facility] VLDL Cholesterol Salvador 48.4 mg/dL LAB CHEMISTRY METHOD 08/05/2024 6:41 PM EST [facility] Non HDL Chol. (LDL+VLDL) 152(H) <145 mg/dL LAB CHEMISTRY METHOD 08/05/2024 6:41 PM EST [facility] Chol/HDL Ratio 5.0(H) 0.0 - 4.4 LAB CHEMISTRY METHOD 08/05/2024 6:41 PM EST [facility] Blood Venous blood specimen / Unknown Venipuncture / Unknown 08/05/2024 3:03 PM EST 08/05/2024 3:03 PM EST us Moris Benedict MD LAB BLOOD ORDERABLES Final Res ult [facility] [address] [place] [address], [place] [phone] * (ABNORMAL) Microalbumin creatinine urine ratio (08/05/2024 3:03 PM EST) Creatinine, Urine 150.0 mg/dL LAB CHEMISTRY METHOD 08/05/2024 7:09 PM [facility] Microalb, Ur 92.1(H) 0.0 - 29.0 mg/L LAB CHEMISTRY METHOD 08/05/2024 7:09 PM [facility] Microalb/Crea t Ratio 61(H) <30 mg/g creat LAB CHEMISTRY METHOD 08/05/2024 7:09 PM [facility] Urine Urine specimen obtained by clean catch procedure / Unknown Non-blood Collection / Unknown 08/05/2024 3:03 PM EST 08/05/2024 3:03 PM EST us Moris Benedict MD LAB URINE ORDERABLES Final Res ult Performing Organization Address [facility]/ZIP Co de Phone Number [facility] [address] [place] [address], [place] [phone] * (ABNORMAL) Hemoglobin A1c (08/05/2024 3:03 PM EST) Hemoglobin A1C 6.5(H) <6.5 % LAB CHEMISTRY METHOD 08/05/2024 9:16 PM [facility] Mean Bld Glu Estim. 140 mg/dL LAB CHEMISTRY METHOD 08/05/2024 9:16 PM [facility] Blood Venous blood specimen / Unknown Venipuncture / Unknown 08/05/2024 3:03 PM EST 08/05/2024 3:03 PM EST us Moris Benedict MD LAB BLOOD ORDERABLES Final Res ult [facility] [address] [place] [address], [place] [phone] * (ABNORMAL) Basic metabolic panel (08/05/2024 3:03 PM EST) Sodium 139 133 - 145 mmol/L LAB CHEMISTRY METHOD 08/05/2024 6:41 PM [facility] Potassium 4.8 3.5 - 5.5 mmol/L LAB CHEMISTRY METHOD 08/05/2024 6:41 PM [facility] Chloride 104 96 - 110 mmol/L LAB CHEMISTRY METHOD 08/05/2024 6:41 PM [facility] CO2 30 21 - 32 mmol/L LAB CHEMISTRY METHOD 08/05/2024 6:41 PM [facility] Anion Gap 5 3 - 11 LAB CHEMISTRY METHOD 08/05/2024 6:41 PM [facility] Glucose 127(H) 70 - 100 mg/dL LAB CHEMISTRY METHOD 08/05/2024 6:41 PM [facility] Comment:Lipemia present BUN 24 5 - 25 mg/dL LAB CHEMISTRY METHOD 08/05/2024 6:41 PM [facility] Creatinine 1.49(H) 0.70 - 1.30 mg/dL LAB CHEMISTRY METHOD 08/05/2024 6:41 PM [facility] eGFR 52(L) >=60 mL/min/1. 73m2 LAB CHEMISTRY METHOD 08/05/2024 6:41 PM [facility] Comment:Calculation based on the??Chronic Kidney Disease Epidemiology Collaboration (CKD-EPI) equation refit??without adjustment for race. BUN/Creatinine Ratio 16.1 LAB CHEMISTRY METHOD 08/05/2024 6:41 PM [facility] Calcium 10.0 8.5 - 10.5 mg/dL LAB CHEMISTRY METHOD 08/05/2024 6:41 PM [facility] Blood Venous blood specimen / Unknown Venipuncture / Unknown 08/05/2024 3:03 PM EST 08/05/2024 3:03 PM EST us Moris Benedict MD LAB BLOOD ORDERABLES Final Res ult [facility] [address] [place] [address], * CT LUNG SCREENING LOW DOSE (02/09/2024 1:41 PM EDT) Anatomical Region Laterality Modality Computed Tomogra phy 02/05/2024 10:3 5 AM EDT Narrative 02/09/2024 1:41 PM EDT [facility] Diagnostic Imaging Department [address] [place] [address] Patient: ??GUERLINE MUNIZ ?/Age/Sex: 1960 - 63 - M Unit#: ??[id number] ? Location/Status: ??SPDICATLS/REG CLI ? [facility] Ordering Physician: ??BRYSON MICHEL MD CT Lung Screening Low Dose - 02/05/24 - 1045 Report Status:Signed PROCEDURE: CT chest lung cancer screening low dose examination. INDICATION: CT lung screening. TECHNIQUE: Chest CT without intravenous contrast was performed. ??Low-dose examination was performed. ??Reformatted images were evaluated. DOSE: CTDIvol: 4.9mGy. ??Total exam DLP: 167.4mGy-cm COMPARISON: CT chest February 2023 FINDINGS: NODULES: Stable appearance of a 3 mm nodule in the periphery of the lingula. ??A similar small nodule at the base of the lingula is again noted and is stable. Stable appearance of a very small nodule in the periphery of the left lower lobe. LUNGS: Minimal emphysematous changes. OTHER: Limited views of the upper abdomen appear normal. ??Stable appearance of small, nonspecific mediastinal nodes. ??Coronary atherosclerotic disease noted. Minimal degenerative changes of the spine. IMPRESSION: Stable examination. ??Stable appearance of small pulmonary nodules. Lung-RADS 2. ??Follow up examination is advised in one year. Dictating Physician: ??RADHAMES ROSARIO MD Electronically Signed by: ??RADHAMES ROSARIO MD Dic Date/Time: ??02/09/24 1335 Sign date/Time: ??02/09/24 1341 Procedure Note Radhames Rosario MD - 04/20/2024 [facility] Diagnostic Imaging Department [address] [place] [address] Patient: BRANDO CARRIONGUERLINE Almanza /Age/Sex: 1960 - 63 -M Unit#: [id number] Location/Status: [facility] Mnemonic/Ordering Site: [facility] Ordering Physician: BRYSON MICHEL MD CT Lung Screening Low Dose - 02/05/24 - 1045 Report Status:Signed PROCEDURE: CT chest lung cancer screening low dose examination. INDICATION: CT lung screening. TECHNIQUE: Chest CT without intravenous contrast was performed.Low-dose examination was performed. Reformatted images were evaluated. DOSE: CTDIvol: 4.9mGy. Total exam DLP: 167.4mGy-cm COMPARISON: CT chest February 2023 FINDINGS: NODULES: Stable appearance of a 3 mm nodule in the periphery of thelingula. A similar small nodule at the base of the lingula is again noted and isstable. Stable appearance of a very small nodule in the periphery of the leftlower lobe. LUNGS: Minimal emphysematous changes. OTHER: Limited views of the upper abdomen appear normal. Stableappearance of small, nonspecific mediastinal nodes. Coronary atherosclerotic diseasenoted. Minimal degenerative changes of the spine. IMPRESSION: Stable examination. Stable appearance of small pulmonary nodules. Lung-RADS 2. Follow up examination is advised in one year. Dictating Physician: RADHAMES ROSARIO MD Electronically Signed by: RADHAMES ROSARIO MD Dic Date/Time: 02/09/24 1335 Sign date/Time: 02/09/24 1341 Bryson Michel MD IMG CT PROCEDURES Final Result from Last 3 Months or Most Recently Relevant to Health Maintenance [place] [address] [address] MEDICAID Care Teams Director Presales Relationship Specialty Start Date End Date Moris Benedict MD [address] [place] [address] PCP - General Internal Medicine 01/10/15
--- OUTSIDE RECORDS SUMMARY | 2024-09-06 12:56 | XMS_ITS | Clinical Summary ---
Author Organization [facility] Address [address] [facility] [address] [place] [address] Phone Care Team Providers Care Oyster Buyer Name Role Phone Moris Benedict MD Primary Care Provider [phone] Allergies Active Allergy Reactions Criticality Noted Date Comments Acetaminophen 08/20/2021 Other reaction(s): kidney issue Aspirin 01/02/2020 Clonidine 06/12/2014 Gabapentin 06/12/2014 Hydrochloric Acid 03/04/2016 Hydrochlorothiazide 08/20/2021 Other reaction(s): chest pain, kidney failure Ibuprofen 05/11/2013 Melatonin 06/12/2014 Naproxen 03/04/2016 Oxycodone 01/02/2020 Quetiapine 06/12/2014 Medications atorvastatin (LIPITOR) 80 MG tablet Take 1 tablet by mouth 1 (one) time each day Active polyethylene glycol (GLYCOLAX) 17 g packet Take 17 g by mouth 1 (one) time each day Active umeclidinium-vi lanterol (Anoro Ellipta) 62.5-25 MCG/INH aerosol powder Inhale 1 puff 1 (one) time each day Active FLUoxetine (PROzac) 40 MG capsule Take 1 capsule by mouth 1 (one) time each day 1 Active Combivent Respimat 20-100 MCG/ACT inhaler INHALE 2 PUFFS INTO THE LUNGS FOUR TIMES DAILY NEEDED FOR SHORTNESS OF BREATH OR COUGH OR WHEEZES. MAX OF 6 PUFFS PER DAY 2 Active omeprazole (PriLOSEC) [address] capsule Take 20 mg by mouth 1 (one) time each day 3 Active metoprolol succinate XL (TOPROL XL) 25 MG 24 hr tablet Take 12.5 mg by mouth in the morning and 12.5 mg in the evening. 3 Active Potassium Citrate ER 15 MEQ (1620 MG) tablet controlled-rele ase TAKE 2 TABLETS BY MOUTH DAILY 60 tablet 5 3 Active ammonium lactate (AMLACTIN) 12 % cream 3 Active mometasone (ELOCON) 0.1 % cream APPLY TOPICALLY TO THE AFFECTED AREA TWICE DAILY NEEDED 3 Active Active Problems Problem Noted Date Diagnosed Date Chronic kidney disease, stage 2 (mild) 3 Hypertension 02/12/2021 Essential hypertension 10/18/2020 Renal stone 10/18/2020 Obstructive uropathy 07/13/2019 Coronary atherosclerosis 01/14/2018 History of calculus of kidney 12/25/2014 Chronic kidney disease 05/20/2013 Overview (10/18/2020): Pt follows with Business Development Analyst @ [facility] Dr Miguel Patricia [phone] Had Renal Cyst Had AICHA 2ry to NSAIds and HCTZ: ATN: which resolved. (this was around november 2012) Last seen by Dr Rivera on May 2013: recommended BP goal 130/80, DASH diet, lifestyle modific. Resolved Problems Problem Noted Date Diagnosed Date Resolved Date Mixed hyperlipidemia 09/17/2021 023 Lipoma of skin and subcutane ous tissue of neck 08/20/2021 09/18/2022 Overview (08/20/2021): bilateral Monoclonal gammopathy of unc ertain significance 07/10/2021 09/18/2022 Overview (09/18/2022): IgM Lambda monoclonal immunoglobulins Patient seen for heme-onc consultation on 09/30/2019. Protein level - finding 07/09/202109/03 Overview (09/18/2022): Lab Results Component Value Date FERR 1048 07/02/2021 Severe acute respiratory syn drome coronavirus 2 not detected 07/01/2021 09/18/2022 History of adenomatous polyp of colon 07/09/2020 09/18/2022 Lesion of liver 07/09/2020 09/18/2022 Overview (09/18/2022): Seen on U/S ([facility]) September 2019. CT scan performed at [facility] on 10/02/2020 reveals evidence of fatty infiltration of the liver which is unchanged . There is also finding of a small 3 mm lesion in the left lobe of the liver that is unchanged and most likely an incidental cyst . No specific follow-up was recommended. Ultrasound of the liver at [facility] dated 11/01/2020 reveals an anechoic mass within the left lobe of the liver measuring 5 x 4 x 5 mm. Subcapsular surface is smooth. No focal intrahepatic mass. No intrahepatic biliary ductal dilatation. CT scan performed at [facility] on 01/05/2021 reveals a 4 mm hypoattenuating lesion in the left lobe is unchanged, too small to accurately characterize, possibly a cyst. No specific follow-up is recommended. Sacroiliac disorder 06/20/2020 09/19/19 23 Anti-nuclear factor detected 08/01/2019 09/18/2022 Abnormal findings on diagnos tic imaging of lung 02/01/2019 09/18/2022 Chronic obstructive pulmonary disease 02/01/2019 09/18/2022 CT of chest abnormal 02/01/2019 023 Ex-smoker 02/01/2019 09/18/2022 Pulmonary fibrosis 02/01/2019 3 Family history of lung cancer 11/17/2018 09/18/2022 Nicotine dependence 11/17/2018 09/19/19 23 Paroxysmal nocturnal dyspnea 11/17/2018 09/18/2022 Snoring 11/17/2018 09/18/2022 Overview (09/18/2022): 11/2018 Polysomnogram did not reveal sleep apnea or nocturnal hypoxia. Suspected respiratory disease 11/17/2018 09/18/2022 Pulmonary granuloma 11/04/2018 09/19/19 23 Erectile dysfunction 10/27/2016 023 Lipoma 01/10/2015 09/18/2022 Polyp of colon 01/10/2015 09/18/2022 Overview (09/18/2022): The patient reports 3 colonoscopies since the age of 44 have revealed a total of 6 colon polyps that were precancerous. Colonoscopies were completed by Dr. Temple. Patient reports next colonoscopy due in 2019. Insomnia 09/18/2014 10/18/2020 Overview (10/18/2020): ON PSYCH F/U. Mixed anxiety and depressive disorder 07/02/2013 10/18/2020 Overview (10/18/2020): PSYCH F/U AT [address] [place] [address]. ROMAN. Lipoma of skin and subcutane ous tissue of neck 06/09/2013 10/18/2020 Overview (10/18/2020): Has been evaluated By -Dr Luis A Duncan January 2013: Ordered CT? -Dr Roland ([facility]): September 2011: Given the option of surgery which patient refused. Back pain 05/11/2013 10/18/2020 Overview (10/18/2020): Pt had MRI done on 03/21/2008: Minimal posterior disc bulging @ L4-5 w/o significant central canal or neural foraminal narrowing Done at [facility]. MRI Lumbar Spine at [facility] 06/16/12: Mild spondilitic changes within the caudal LS spine without central or foraminal stenosis He has been seen by -Dr Moris Irby July 2012: he was offered injections which patient refused. Was not surgical candidate. There was nothing else [facility] could offered as per note. -[facility] in 2011 Disorder of urinary system 12/08/2012 0 10/18/2020 Overview (10/18/2020): Seen at [facility] on December 2012 Prediabetes 11/07/2012 10/18/2020 Overview (10/18/2020): A1C: 6.2% History of colonoscopy 05/11/200910/18 Overview (10/18/2020): Last 2014, DUe on [address] [facility] due to disagreement with Dr Temple. On 2006 had colonoscopy with polypectomy (6 removed). Path: TUBULAR ADENOMAS Fatty liver 12/11/2008 10/18/2020 Overview (10/18/2020): U/S ABD SHOWED: diffuse fatty infiltration of the liver with foci of fatty sparing. Gastritis 06/25/2007 10/18/2020 Overview (10/18/2020): Pt had EGD done that showed Esophagitis and Gastritis with erosion and fold thickening. Path showed Chronic gastritis and + H.pylori Immunizations Name Administration Dates Next Due Td 06/09/2018 Family History Medical History Relation Comments Heart disease Father Hypertension Father Relation Status Comments Father Mother Alive Social History Tobacco Use Types Packs/Day Years Used Date Smoking Tobacco: Former Smokeless Tobacco: Never Tobacco Cessation:Counseling Given: Not Answered Comments:Smoking History Info:Some days Alcohol Use Standard Drinks/Week Comments Yes 0 (1 standard drink = 0.6 oz pure alcohol) Alcoholic Drinks/day: Occasional social drink Sex and Gender Information Value Date Recorded Sex Assigned at Not on file Legal Sex Male 5:07 PM EST Gender Identity Not on file Sexual Orientation Not on file Last Filed Vital Signs Vital Sign Reading Time Taken Comments Blood Pressure 118/70 04/02/2023 4:23 PM EDT Pulse 71 04/02/2023 4:23 PM EDT Temperature - - Respiratory Rate - - Oxygen Saturation 95% 04/02/2023 4:23 PM EDT Inhaled Oxygen Concentration - - Weight 96 kg (211 lb 9.6 oz) 04/02/2023 4:23 PM EDT Height 172.7 cm (5' 8 ) 10/18/2019 12:00 PM EDT Body Mass Index 32.17 10/18/2019 12:00 PM EDT Plan of Treatment Health Maintenance Due Date Last Done Comments Pneumococcal Vaccine: Pediat rics (0 to 5 Years) and At-Risk Patients (6 to 64 Years) (1 of 2 - PCV) 10/12/1965 Colorectal Cancer Screening: Annual FOBT 10/12/2008 Colorectal Cancer Screening: Sigmoidoscopy 10/12/2008 Influenza Vaccine (#1) 2024 Colorectal Cancer Screening: Colonoscopy 10/18/2030 10/18/2020 Hepatitis B Vaccine Aged Out No longe r eligible based on patient's age to complete this topic Insurance ([id number]) [facility] ([id number]) Care Teams Oyster Buyer Relationship Specialty Start Date End Date Moris Benedict MD PCP - General 07/16/20
--- OUTSIDE RECORDS SUMMARY | 2024-09-06 12:56 | XMS_ITS | Clinical Summary ---
Author Organization [facility] Address [address] [place] [address] Care Team Providers Care Tube Roller Name Role Phone Moris Benedict MD Primary Care Provider [phone] Allergies Active Allergy Reactions Criticality Noted Date Comments Ibuprofen 01/02/2020 Aspirin 01/02/2020 Gabapentin 01/02/2020 Oxycodone 01/02/2020 Medications Medication Sig Dispensed Refills Start Date End Date Status POTASSIUM PO Take by mouth. 0 Active metoprolol succinate (TOPROL-XL) 24 hr tablet 25 mg Take by mouth daily. 0 Active atorvastatin (LIPITOR) tablet 80 mg Take 1 tablet (80 mg total) by mouth daily. 0 Active FLUoxetine (PROzac) 40 MG capsule Take 1 capsule (40 mg total) by mouth daily. 0 Active Ipratropium-Albuterol (COMBIVENT IN) Inhale into the lungs. 0 Active Umeclidinium-Vilanterol (ANORO ELLIPTA IN) Inhale into the lungs. 0 Active polyethylene glycol (SB Polyethylene Glycol 3350) 17 GM/SCOOP powder Take by mouth. 0 Active omeprazole (PriLOSEC) 20 MG capsule Take 1 capsule (20 mg total) by mouth daily. 0 Active Active Problems No known active problems Social History Tobacco Use Types Packs/Day Years Used Date Smoking Tobacco: Former Smokeless Tobacco: Never Comments:quit almost 2 year ago Alcohol Use Standard Drinks/Week Comments Yes 0 (1 standard drink = 0.6 oz pur e alcohol) Sex and Gender Information Value Date Recorded Sex Assigned at Not on file Gender Identity Not on file Sexual Orientation Not on file Job Start Date Occupation Industry Not on file Not on file Not on file Last Filed Vital Signs Vital Sign Reading Time Taken Comments Blood Pressure 165/90 12/22/2023 10:21 AM EDT Pulse 94 12/22/2023 10:21 AM EDT Temperature 36.6 ??C (97.9 ??F) 12/22/2023 10:21 AM E DT Respiratory Rate - - Oxygen Saturation 95% 12/22/2023 10:21 AM EDT Inhaled Oxygen Concentration - - Weight 91.2 kg (201 lb) 12/22/2023 10:21 AM EDT Height 172.7 cm (5' 8 ) 12/22/2023 10:21 AM EDT Body Mass Index 30.56 12/22/2023 10:21 AM EDT Plan of Treatment Health Maintenance Due Date Last Done Comments Hepatitis C Screening 1960 COVID-19 Vaccine (#1) 10/12/1964 Pneumococcal Vaccine (1 of 2 - PCV) 10/12/1965 Pneumococcal Vaccine (1 of 2 - PCV) 10/12/1965 Depression Screening 1971 Preventative Health Evaluation 10/12/1977 DTap / Tdap / Td (1 - Tdap) 10/12/1978 Shingrix-Zoster Vaccine (1 of 2) 10/12/1978 Colon Cancer Screening (Colonoscopy) 10/12/2004 Influenza Vaccine (#1) 2024 RSV Adult > 60+ Yrs or Pregn ant (1 - 1-dose 75+ series) 10/12/2034 Hepatitis B Vaccines Aged Out No long er eligible based on patient's age to complete this topic RSV Ped < 20 months Aged Out No longe r eligible based on patient's age to complete this topic Care Teams Tube Roller Relationship Specialty Start Date End Date Moris Benedict MD PCP - General Internal Medicine 01/02/20
== END 2024-09-06 11:16 | disposition home or self-care (01) ==
PROVIDERS: PCP Internal Medicine; Visit Provider Internal Medicine Nephrology
DX: N18.2 Chronic kidney disease, stage 2 (mild) (principal); N28.1 Cyst of kidney, acquired; N20.0 Calculus of kidney
CPT/HCPCS: 99214

== ENCOUNTER → 2024-09-06 10:33 | Outpatient (BNVA) | payer OTHER, SELFPAY | PROVIDERS: PCP Internal Medicine; Visit Provider Internal Medicine Nephrology | DX: N18.2 Chronic kidney disease, stage 2 (mild) (principal); N28.1 Cyst of kidney, acquired; N20.0 Calculus of kidney | CPT/HCPCS: 99212 ==

== ENCOUNTER 2025-03-09 13:59 | Outpatient (REF) | payer OTHER, SELFPAY ==
--- OUTSIDE RECORDS SUMMARY | 2025-03-07 18:00 | XMS_ITS | Encounter Summary ---
Author Organization [facility] [employer] Address [address] [place] [address] Care Team Providers Care Acid Strength Inspector Name Role Phone Moris Benedict MD Primary Care Provider [phone] Reason for Visit * Consultation (Routine) - Authorized Specialty Diagnoses / Procedures Referred By Oliver frances Referred To Contact Physical Therapy / Pediatric Physical Therapy Diagnoses Dog bite, initial encounter Acute right-sided low back pain with right-sided sciatica Moris Benedict MD [address] [place] [address] Phone: tel: fax: Referral ID Status Reason Start Date Expiration Date Visits Requested Visits Authorized [id number] Authorized Specialty Services Required 02/09/2025 02/09/2026 21 9 Encounter Details Date Type Department Care Team (Late st Contact Info) Description 03/07/2025 6:00 PM EDT Treatment [address] [phone] Meng Love, FACETOR Acute right-sided low back pain with right-sided sciatica (Primary Dx); Dog bite, initial encounter Social History Tobacco Use Types Packs/Day Years [...] as of this encounter Progress Notes * Meng Love PTA - 03/07/2025 6:00 PM EDT [facility] - Outpatient PHYSICAL THERAPY DAILY TREATMENT NOTE - OP Date: 03/07/2025 Visit Number: [id number] Patient Name: Anshul Howell : 1960 Age: 64 y.o. Gender: male Diagnosis: ICD-10-CM ICD-9-CM 1. Acute right-sided low back pain with right-sided sciatica M54.41 724.2 724.3 2. Dog bite, initial encounter W54.0XXA 879.8 E906.0 Date of Onset/Surgery: 01/31/2025 Referring Provider: Moris Benedict MD Insurance: [facility] MEDICARE / Plan: [facility] [employer] CARE / Product Type: *No Product type* / Patient Identified by: Meng Love PTA Language: Ecuadorean Medications: Current Outpatient Medications on File Prior to Visit Medication Sig Dispense Refill amLODIPine (NORVASC) 2.5 mg tablet TAKE 1 TABLET(2.5 MG) BY MOUTH 1 TIME EACH DAY 90 tablet 1 atorvastatin (LIPITOR) 80 mg tablet TAKE 1 TABLET BY MOUTH DAILY 30 tablet 5 FLUoxetine (PROzac) 40 mg capsule TAKE 1 CAPSULE BY MOUTH DAILY 30 capsule 5 glycopyrrolate-formoterol (Bevespi Aerosphere) 9-4.8 mcg HFA aerosol inhaler inhaler Inhale 2 puffsby mouth 2 (two) times a day. 1 each 11 ipratropium-albuteroL (Combivent Respimat) 20-100 mcg/actuation inhaler INHALE 1 PUFF BY MOUTH EVERY 6 HOURS NEEDED FOR WHEEZING 4 g 3 metoprolol succinate (TOPROL-XL) 25 mg 24 hr tablet TAKE 1/2 TABLET BY MOUTH TWICE DAILY 90 tablet 1 metoprolol tartrate (LOPRESSOR) 25 mg tablet Take 1 tablet (25 mg total) by mouth 2 (two) times a day. mometasone (ELOCON) 0.1 % cream Apply topically 1 (one) time each day. 45 g 1 morphine (MSIR) 15 mg tablet Take 1 tablet (15 mg total) by mouth every 4 (four) hours. for pain omeprazole (PriLOSEC) [address] capsule Take 1 capsule (20 mg total) by mouth 1 (one) time each day.30 capsule 5 polyethylene glycol (MIRALAX) 17 gram packet MIX AND DRINK 1 PACKET BY MOUTH DAILY 28 each 5 potassium citrate (UROCIT-K) 15 mEq SR tablet TAKE 1 TABLET BY MOUTH DAILY 30 tablet 5 predniSONE (DELTASONE) 10 mg tablet Take 4 tablets daily for 3 days than 3 tablets daily for 3 daysthan 2 tablets for 3 days than 1 tablet daily for 3 days 30 tablet 0 tamsulosin (FLOMAX) 0.4 mg 24 hr capsule Take 1 capsule (0.4 mg total) by mouth 1 (one) time each day. tiZANidine (ZANAFLEX) 4 mg tablet Take 1 tablet (4 mg total) by mouth 3 (three) times a day if needed for muscle spasms. 30 tablet 0 umeclidinium-vilanteroL (Anoro Ellipta) 62.5-25 mcg/actuation inhaler Inhale 1 puff by mouth 1 (one) time each day. 1 each 11 No current facility-administered medications on file prior to visit. Allergies: is allergic to acetaminophen, aspirin, clonidine, gabapentin, hydrochloric acid, hydrochlorothiazide, ibuprofen, melatonin, naproxen, oxycodone, and quetiapine. Precautions: none Fall risk: No SUBJECTIVE Subjective Report: pt reports feeling better but had pressure in his left ear and was wondering if it had anything to do with being bitten by a dog. Chart Reviewed: Yes Pain 'left side but across low back / TREATMENT INTERVENTION: Nustep x5 min level 4 Standing hamstring and hip flexor stretching x5 min ea Supine LTR x 30 SKTC x 5 with 10 sec hold: Piriformis stretching x3 Supine marching x20 Attempted bridging but pains in his right ribs Trial standing exercises next session ASSESSMENT/Response to Treatment Good, oresented improved tolerance to exercises however bridging caused increased right flank sxs Patient Education: Education provided: Yes Education Provided To: Patient utilizing Explanation mode(s) of education Response to Education: Verbal Understanding PLAN POC Development/Review: No Change in the Plan of Care; Participants: Patient Total Treatment Time: 30 Therapeutic procedures: Therapeutic Exercise Time Entry: 30 Documentation completed by Meng Love PTA documented in this encounter Plan of Treatment Upcoming Encounters Date Type Department Care Team (Late st Contact Info) Description 03/09/2025 6:00 PM EDT Treatment [facility] [address] [phone] PauletteDakota, FACETOR 03/13/2025 6:00 PM EDT Treatment [facility] [address] [phone] Meng Love, FACETOR 03/15/2025 2:30 PM EDT Office Visit Orthopedic Surgery [facility] [address] [phone] Moris Gonzalez MD [address] [address] 03/15/2025 6:00 PM EDT Treatment [facility] [address] [phone] Yoandy Fisher, FACETOR 03/20/2025 6:00 PM EDT Treatment [facility] [address] [phone] Meng Love, FACETOR 03/22/2025 5:00 PM EDT Treatment [facility] [address] [phone] Tatyana Ji, PT 05/03/2025 12:30 PM EDT Ancillary Procedure Pulmonolgy [facility] [address] [phone] 05/05/2025 1:00 PM EDT Office Visit [facility] [address] [phone] Lazara Fernandez MD [address] [address] 05/10/2025 1:30 PM EST Office Visit [facility] Hematology Oncology [address] [place] [phone] Angel Enrique MD [address] [place] [address] 07/19/2025 11:00 AM EST Office Visit Internal Medicine - [address] [phone] Moris Benedict MD [address] [place] [phone] 11/30/2025 11:30 AM EDT Office Visit Gastroenterology [facility] 175 [facility] 175 [facility] [address] [place] [phone] Abigail Fragoso PA [address] [place] [phone] documented as of this encounter Goals Goal Patient Goal Type Associated Problems Recent Progress Patient-Stated? Author <enter goal here> General On track( 025 3:26 PM EDT) Yes Laura Donovan, OT Note: OT PATIENT GOAL HAVE LESS PAIN WITH DAILY ACTIVITIES documented as of this encounter Visit Diagnoses Diagnosis Acute right-sided low back pain with right-sided sciatica- Primary Dog bite, initial encounter documented in this encounter Care Teams Acid Strength Inspector Relationship Specialty Start Date End Date Moris Benedict MD [address] [place] [address] PCP - General Internal Medicine 01/10/15 documented as of this encounter
--- OUTSIDE RECORDS SUMMARY | 2025-03-09 15:14 | XMS_ITS | Encounter Summary ---
Author Organization [facility] Address [address] [place] [address] Phone Care Team Providers Care Balance Truer Name Role Phone Moris Benedict MD Primary Care Provider + Encounter Details Date Type Department Care Team (Late st Contact Info) Description 02/02/[address] [facility] [address] [place] [address] [facility], [address]nd Floor, [address] [place] [address] Social History Tobacco Use Types Packs/Day Years Used Date Smoking Tobacco: Never Assessed Education Answer Date Recorded Are you interested in more education? Not on tamir e 01/21/2024 Are you concerned about learning? Not on file 01/21/2024 No 01/21/2024 No 01/21/2024 Digital Access Answer Date Recorded No 01/21/2024 No 01/21/2024 Reliable internet access at home? Not on file 01/21/2024 Device with a working camera? Not on file Sex and Gender Information Value Date Recorded Sex Assigned at Not on file Legal Sex Male 12:48 PM EDT Gender Identity Not on file Sexual Orientation Not on file documented as of this encounter Plan of Treatment Not on file documented as of this encounter Visit Diagnoses Not on filedocumented in this encounter Care Teams Balance Truer Relationship Specialty Start Date End Date Moris Benedict MD [address] [place] [phone] PCP - General Internal Medicine 01/21/24 documented as of this encounter Additional Source Comments The information contained in this document represents components of the legal health record. It is not the complete legal health record.[facility]
--- OUTSIDE RECORDS SUMMARY | 2025-03-09 15:14 | XMS_ITS | Clinical Summary ---
Author Organization [facility] Address [address] [place] [address] Phone Care Team Providers Care Steward/Stewardess Wine Name Role Phone Moris Benedict MD Primary Care Provider [phone] Allergies Active Allergy Reactions Criticality Noted Date [...] disease 05/20/2013 Overview (10/18/2020): Pt follows with [facility] @ [facility] Ne[facility] Dr Miguel Patricia [phone] Had Renal Cyst Had AICHA 2ry to [...] 07/09/2020 09/18/2022 Overview (09/18/2022): Seen on U/S ([facility]) September 2019. CT scan performed at [facility] on 10/02/2020 reveals evidence of fatty infiltration of the liver which is unchanged . There is also finding of a small 3 mm lesion in the left lobe of the liver that is unchanged and most likely an incidental cyst . No specific follow-up was recommended. Ultrasound of the liver at [facility] dated 11/01/2020 reveals an anechoic mass within the left lobe of the liver measuring 5 x 4 x 5 mm. Subcapsular surface is smooth. No focal intrahepatic mass. No intrahepatic biliary ductal dilatation. CT scan performed at [facility] on 01/05/2021 reveals a 4 mm hypoattenuating [...] 07/02/2013 10/18/2020 Overview (10/18/2020): PSYCH F/U AT [address] [place] [address] ROMAN. Lipoma of skin and subcutane ous tissue of neck 06/09/2013 10/18/2020 Overview (10/18/2020): Has been evaluated By -Dr Luis A Duncan January 2013: Ordered CT? -Dr Roland ([facility]): September 2011: Given the option of surgery which patient refused. Back pain 05/11/2013 10/18/2020 Overview (10/18/2020): Pt had MRI done on 03/21/2008: Minimal posterior disc bulging @ L4-5 w/o significant central canal or neural foraminal narrowing Done at [facility]. MRI Lumbar Spine at [facility] 06/16/12: Mild spondilitic changes within the caudal LS spine without central or foraminal stenosis He has been seen by -Dr Moris Irby July 2012: he was offered injections which patient refused. Was not surgical candidate. There was nothing else doctors hospital could offered as per note. -[facility] in 2011 Disorder of urinary system 12/08/2012 0 10/18/2020 Overview (10/18/2020): Seen at [facility] on December 2012 Prediabetes 11/07/2012 10/18/2020 Overview (10/18/2020): A1C: 6.2% History of colonoscopy 05/11/200910/18 Overview (10/18/2020): Last 2014, DUe on [address] [facility] [...] showed Chronic gastritis and + H.pylori Immunizations Immunization Administration Dates Next Due Td 06/09/2018 Family [...] Due Date Last Done Comments Pneumococcal Vaccine: 50+ Ye ars (1 of 2 - PCV) 10/12/1978 Colorectal Cancer Screening: Annual FOBT 10/12/2008 Colorectal Cancer Screening: Sigmoidoscopy 10/12/2008 Influenza Vaccine (#1) 2025 Colorectal Cancer Screening: Colonoscopy 10/18/2030 10/18/2020 Hepatitis B Vaccine Aged Out No longe r eligible based on patient's age to complete this topic Insurance ([id number]) [facility] ([id number]) Care Teams Steward/Stewardess Wine Relationship Specialty Start Date End Date Moris Benedict MD PCP - General 07/16/20
--- OUTSIDE RECORDS SUMMARY | 2025-03-09 15:14 | XMS_ITS | Clinical Summary ---
Author Organization [facility] Address [address] [place] [address] Care Team Providers Care Ophthalmic Surgeon Name Role Phone Moris Benedict MD Primary Care Provider [phone] Allergies Active Allergy Reactions Criticality Noted Date [...] 94 12/22/2023 10:21 AM EDT Temperature 36.6 C (97.9 F) 12/22/2023 10:21 AM EDT Respiratory Rate - - Oxygen Saturation 95% 12/22/2023 10:21 AM EDT Inhaled Oxygen Concentration - - Weight 91.2 kg (201 lb) 12/22/2023 10:21 AM EDT Height 172.7 cm (5' 8 ) 12/22/2023 10:21 AM EDT Body Mass Index 30.56 12/22/2023 10:21 AM EDT Plan of Treatment Health Maintenance Due Date Last Done Comments Hepatitis C Screening 1960 COVID-19 Vaccine (#1) 04/13/1960 Depression Screening 1971 Preventative Health Evaluation 10/12/1977 DTap / Tdap / Td (1 - Tdap) 10/12/1978 Colon Cancer Screening (Colonoscopy) 10/12/2004 Shingrix-Zoster Vaccine (1 of 2) 10/12/2009 Fall Risk Assessment 10/12/2024 Pneumococcal Vaccine (1 of 1 - PCV) 10/12/2024 Influenza Vaccine (#1) 2025 RSV Adult > 60+ Yrs or Pregn ant (1 - 1-dose 75+ series) 10/12/2034 Hepatitis B Vaccines Aged Out No long er eligible based on patient's age to complete this topic Pneumococcal Vaccine Aged Out No long er eligible based on patient's age to complete this topic RSV Ped < 20 months Aged Out No longe r eligible based on patient's age to complete this topic Care Teams Ophthalmic Surgeon Relationship Specialty Start Date End Date Moris Benedict MD PCP - General Internal Medicine 01/02/20
--- OUTSIDE RECORDS SUMMARY | 2025-03-09 15:14 | XMS_ITS | Clinical Summary ---
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 Role Phone Moris Benedict MD Primary Care Provider [phone] Allergies Active Allergy Reactions Criticality Noted Date Comments Acetaminophen 03/04/2016 Other Reaction(s): kidney issue Other reaction(s): kidney issue Aspirin Swelling 09/30/2017 Clonidine 06/12/2014 Other Reaction(s): ankle swelling Gabapentin 03/04/2016 Other Reaction(s): swelling Hydrochloric Acid 03/04/2016 Hydrochlorothiazide Swelling 08/20/2021 Other Reaction(s): chest pain, kidney failure Other reaction(s): chest pain, kidney failure Ibuprofen 03/04/2016 Other Reaction(s): chest pain/ kidney stones Melatonin 06/12/2014 Other Reaction(s): head throbs Naproxen 03/04/2016 Other Reaction(s): kidney issues Oxycodone Itching 09/30/2017 Quetiapine 06/12/2014 Other Reaction(s): night cheung Medications tamsulosin (FLOMAX) 0.4 mg 24 hr capsule Take 1 capsule (0.4 mg total) by mouth 1 (one) time each day. 01/11/20 24 Active mometasone (ELOCON) 0.1 % cream Apply topically 1 (one) time each day. 45 g 1 09/28/19 25 Active atorvastatin (LIPITOR) 80 mg tablet TAKE 1 TABLET BY MOUTH DAILY 30 tablet 5 10/19/19 25 Active FLUoxetine (PROzac) 40 mg capsule TAKE 1 CAPSULE BY MOUTH DAILY 30 capsule 5 10/19/19 25 Active umeclidinium-v ilanteroL (Anoro Ellipta) 62.5-25 mcg/actuation inhaler Inhale 1 puff by mouth 1 (one) time each day. 1 each 11/02/19 25 026 Active metoprolol succinate (TOPROL-XL) 25 mg 24 hr tablet TAKE 1/2 TABLET BY MOUTH TWICE DAILY 90 tablet 1 11/22/19 25 Active potassium citrate (UROCIT-K) 15 mEq SR tablet TAKE 1 TABLET BY MOUTH DAILY 30 tablet 11/22/19 25 Active omeprazole (PriLOSEC) [address] capsule Take 1 capsule (20 mg total) by mouth 1 (one) time each day. 30 capsule 12/01/19 25 Active amLODIPine (NORVASC) 2.5 mg tablet TAKE 1 TABLET(2.5 MG) BY MOUTH 1 TIME EACH DAY 90 tablet 1 12/21/19 25 Active glycopyrrolate -formoterol (Bevespi Aerosphere) 9-4.8 mcg HFA aerosol inhaler inhaler Inhale 2 puffs by mouth 2 (two) times a day. 1 each 12/22/19 25 026 Active predniSONE (DELTASONE) 10 mg tabletIndicati ons:Dog bite, initial encounter,Acut e right-sided low back pain with right-sided sciatica Take 4 tablets daily for 3 days than 3 tablets daily for 3 days than 2 tablets for 3 days than 1 tablet daily for 3 days 30 tablet 02/10/20 25 Active morphine (MSIR) 15 mg tablet Take 1 tablet (15 mg total) by mouth every 4 (four) hours. for pain 02/16/20 25 Active metoprolol tartrate (LOPRESSOR) 25 mg tablet Take 1 tablet (25 mg total) by mouth 2 (two) times a day. 11/06/19 24 Active tiZANidine (ZANAFLEX) 4 mg tablet Take 1 tablet (4 mg total) by mouth 3 (three) times a day if needed for muscle spasms. 30 tablet 02/22/20 25 Active polyethylene glycol (MIRALAX) 17 gram packet MIX AND DRINK 1 PACKET BY MOUTH DAILY 28 each 5 02/22/20 25 Active ipratropium-al buteroL (Combivent Respimat) 20-100 mcg/actuation inhaler INHALE 1 PUFF BY MOUTH EVERY 6 HOURS NEEDED FOR WHEEZING 4 g 3 02/28/20 Active polyethylene glycol (MIRALAX) 17 gram packet MIX AND DRINK 1 PACKET BY MOUTH DAILY 28 each 5 08/09/19 25 025 Discontinued ipratropium-al buteroL (Combivent Respimat) 20-100 mcg/actuation inhaler Inhale 1 puff by mouth every 6 (six) hours if needed for wheezing. 1 each 3 10/20/19 25 025 Discontinued methylPREDNISo lone (MEDROL DOSPAK) 4 mg tablet Take as directed on package. 21 tablet 01/13/20 25 025 Discontinued(Re order) methylPREDNISo lone (MEDROL DOSPAK) 4 mg tabletIndicati ons:Acute right-sided low back pain with right-sided sciatica Take as directed on package. 21 tablet 02/15/20 25 025 Active Problems Problem Noted Date Diagnosed Date Diabetes mellitus without co mplication ([facility] V24, [facility] V28) 01/12/2025 Chronic renal impairment, st age 3a ([facility] V24, [facility] V28) 01/12/2025 Trigger finger of right thumb 10/11/2024 Lipoma of skin and subcutaneous tissue of [...] lesion 07/09/2020 Overview (04/18/2024): Seen on [facility] ([facility]) September 2019. CT scan performed at [facility] on 10/02/2020 reveals evidence of fatty infiltration of the liver which is unchanged . There is also finding of a small 3 mm lesion in the left lobe of the liver that is unchanged and most likely an incidental cyst . No specific follow-up was recommended. Ultrasound of the liver at [facility] dated 11/01/2020 reveals an anechoic mass within the left lobe of the liver measuring 5 x 4 x 5 mm. Subcapsular surface is smooth. No focal intrahepatic mass. No intrahepatic biliary ductal dilatation. CT scan performed at [facility] on 01/05/2021 reveals a 4 mm hypoattenuating lesion in the left lobe is unchanged, too small to accurately characterize, possibly a cyst. No specific follow-up is recommended. SI (sacroiliac) joint dysfunction 06/20/2020 Positive MICAELA (antinuclear antibody) 08/01/2019 Obstructive uropathy 07/13/[address] of the chest 02/01/2019 Chronic obstructive pulmonar y disease ([facility] V24, [facility] V28) 02/01/2019 Pulmonary fibrosis ([facility] V24, [facility] V28) Ground glass opacity present on imaging of lung 02/01/2019 Snoring 11/17/2018 Overview (04/18/2024): 11/2018 Polysomnogram did not reveal sleep apnea or nocturnal hypoxia. 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 Brando Howell describes chronic low back pain without radiation to the legs. He currently has some pain in the right hip and knee after a fall a few days ago but does not believe that they are related to his back. He says that he has had the back pain for years and it comes and goes. Sometimes he needs a cane and sometimes he does not. He is neurologically intact and ambulates with little bit of a limp and the aid of a cane. He says that the more he is up and walking the less he limps and ultimately it goes away. A CT of the thoracic and lumbar spine from [facility] reveals multilevel mild to moderate degenerative changes and is most significant for right sided T10-11 facet joint hypertrophy resulting in moderate L stenosis. Mr. Brando Howell is not interested in any surgical intervention for his low back pain. As his degenerative changes are only mild to moderate, I would certainly agree with him. I offered him a prescription for physical therapy but he told me he already had one. He can follow-up with us in the future on an as-needed basis. CKD (chronic kidney disease) 12/25/2014 Essential hypertension 12/25/2014 Gastroesophageal reflux disease 12/25/2014 Encounters Date Type Department Care Team Description 03/07/2025 6:00 PM EDT Treatment [address] [phone] Meng Love, CABINET WORKER Acute right-sided low back pain with right-sided sciatica (Primary Dx); Dog bite, initial encounter 03/02/2025 3:30 PM EDT Treatment [address] [phone] Meng Love, CABINET WORKER Acute right-sided low back pain with right-sided sciatica (Primary Dx) 02/27/2025 5:00 PM EDT Treatment [address] [phone] Oliverio Ji, CABINET WORKER Acute right-sided low back pain with right-sided sciatica (Primary Dx); Dog bite, initial encounter 02/23/2025 2:00 PM EDT Consult Neurosurgery [place] [address] [phone] De Roberson PA Chronic midline low back pain without sciatica (Primary Dx); Lumbar foraminal stenosis 02/21/2025 10:30 AM EDT Office Visit [facility] [place] [address] Moris Benedict MD Lumbar foraminal stenosis (Primary Dx); Chronic pain of right knee 02/16/2025 Telephone Internal Medicine - [facility] [place] [phone] Moris Benedict MD 02/14/2025 10:18 PM EDT - 02/15/2025 2:05 AM EDT Emergency [facility] Emergency [address] [place] [address] Discharge Disposition: Home or Self Care 02/13/2025 2:30 PM EDT Evaluation [address] [phone] Tatyana Ji, PT Acute right-sided low back pain with right-sided sciatica (Primary Dx); Dog bite, initial encounter 02/11/2025 9:00 AM EDT - 02/11/2025 11:59 PM EDT Hospital Encounter [facility] CT Scan [address] [place] [address] Encounter for screening for lung cancer; Current smoker Discharge Disposition: Home or Self Care 02/09/2025 10:30 AM EDT Office Visit Internal Medicine - [facility] [address] [place] [address] Moris Benedict MD Dog bite, initial encounter (Primary Dx); Acute right-sided low back pain with right-sided sciatica 02/01/2025 Telephone Internal Medicine - [address] [phone] Moris Benedict MD 01/31/2025 9:27 PM EDT - 01/31/2025 10:01 PM EDT Emergency [facility] Emergency [address] [place] [phone] Dog bite, initial encounter (Primary Dx) Discharge Disposition: Home or Self Care 01/12/2025 4:09 PM EDT - 01/12/2025 11:59 PM EDT Hospital Encounter Xray - [address] [phone] Chronic hand pain, unspecified laterality Discharge Disposition: Home or Self Care 01/12/2025 4:00 PM EDT Office Visit Internal Medicine - [address] [phone] Moris Benedict MD Adult general medical examination (Primary Dx); Diabetes mellitus without complication (CMS/HCC V24, CMS/HCC V28); Chronic renal impairment, stage 3a (CMS/HCC V24, CMS/HCC V28); Chronic hand pain, unspecified laterality; Screening for deficiency anemia; Screening for hyperlipidemia; Screening for diabetes mellitus; Screening for prostate cancer; Screening for thyroid disorder 12/21/2024 Telephone Pulmonolgy [facility] 175 [facility] [address] [place] [phone] Lazara Fernandez MD from Last 3 Months Immunizations Name Administration Dates Next Due TD, Adsorbed, Preservative Free 06/09/2018 Tdap Tetanus diptheria acell ular pertussis (Boostrix; Adacel) 7yo and older 01/31/2025,01/12/2023 Surgical History Surgery Date Site/Laterality Comments KIDNEY STONE SURGERY 06/19/2014 PROCEDURE: [place] NEPHROLITHOTOMY REMOVAL CALCULUS; COMMENT: PVU COLONOSCOPY 08/15/2014 [...] HISTORICAL TONSILLECTOMY OTHER SURGICAL HISTORY Left PROCEDURE: [place] INSJ IRIS PROSTH SECONDARY IO LENS PLMT/EXCHANGE; COMMENT: lens implant EXCISION BENIGN SKIN LESION TRUNK / ARM / LEG 09/04/2023 Left PROCEDURE: [place] EXCISION TUMOR SOFT TISSUE BACK/FLANK SUBQ <3CM [...] H. pylori infection. Elevated ferritin level 07/09/2021 DX:[place] erin ferritin level; COMMENT: Lab Results Component Value Date FERR 1048 07/02/2021 MGUS (monoclonal gammopathy of unknown significance) 07/10/2021 DX:MGUS (monoclonal gammopat hy of unknown significance); COMMENT: IgM Lambda monoclonal immunoglobulins Patient seen for heme-onc consultation on 09/30/2019. Gallstones DX:Gallstones COPD (chronic obstructive pu lmonary disease) (CMS/HCC V24, CMS/HCC V28) DX:COPD (chronic o bstructive pulmonary disease) (HCC) Glaucoma DX:Glaucoma Kidney stones [...] Sign Reading Time Taken Comments Blood Pressure 133/84 02/21/2025 10:10 AM EDT A Pulse 91 02/21/2025 10:10 AM EDT Temperature 36.5 C (97.7 F) 02/15/2025 1:22 AM EDT Respiratory Rate 16 02/15/2025 1:22 AM EDT Oxygen Saturation 98% 02/15/2025 1:22 AM EDT Inhaled Oxygen Concentration - - Weight 96.2 kg (212 lb) 02/23/2025 2:07 PM EDT Height 172.7 cm (5' 8 ) 02/23/2025 2:07 PM EDT Body Mass Index 32.23 02/23/2025 2:07 PM EDT Plan of Treatment Upcoming Encounters Date Type Department Care Team (Late st Contact Info) Description 03/09/2025 6:00 PM EDT Treatment [facility] [address] [phone] Dakota Caldwell PTA 03/13/2025 6:00 PM EDT Treatment [facility] [address] [phone] Meng Love, SHANEKA 03/15/2025 2:30 PM EDT Office Visit Orthopedic Surgery [facility] 160 [address] [facility] [address] [place] [phone] Moris Gonzalez MD [address] [address] 03/15/2025 6:00 PM EDT Treatment [address] [phone] Natalia Yoandy, CABINET WORKER 03/20/2025 6:00 PM EDT Treatment [address] [phone] Meng Love, CABINET WORKER 03/22/2025 5:00 PM EDT Treatment [address] [phone] Tatyana Ji, PT 05/03/2025 12:30 PM EDT Ancillary Procedure [address] [phone] 05/05/2025 1:00 PM EDT Office Visit Pulmonolgy [address] [phone] Lazara Fernandez MD [address] [place] [address] 05/10/2025 1:30 PM EST Office Visit [facility] Hematology Oncology [address] [place] [phone] Angel Enrique MD [address] [place] [address] 07/19/2025 11:00 AM EST Office Visit Internal Medicine - [address] [phone] Moris Benedict MD [address] [place] [address] 11/30/2025 11:30 AM EDT Office Visit Gastroenterology - [address] [phone] Abigail Fragoso PA [address] [place] [phone] Health Maintenance Due Date Last Done Comments COVID-19 Vaccine (#1) 10/12/1964 Diabetes: Annual Foot Exam 10/12/1969 Diabetes: Annual Retina Eye Exam 10/12/1969 Hepatitis A Vaccines (1 of 2 - Risk 2-dose series) 10/12/1978 Pneumococcal Vaccine: 50+ Years (1 of 2 - PCV) 10/12/1978 Zoster Vaccines (1 of 2) 10/12/1978 Hepatitis B Vaccines (1 of 3 - Risk 3-dose series) 2019 RSV Immunization Adult Patients (1 - Risk 60-74 years 1-dose series) 2019 Abdominal Aortic Aneurysm (AAA) Screen 06/14/2022 Hepatitis C Screening 06/14/2022 Medicare Annual Wellness Visit 06/14/2022 Social Influencers of Health Screening 06/14/2022 Depression Screening 07/06/2024 Falls Risk Assessment 10/12/2024 Diabetes: Blood Sugar Control Test (HGBA1C) 02/02/2025 08/05/2024 Influenza Vaccine (#1) 2025 Diabetes: Annual Urine Albumin-Creatinine Ratio (uACR) 08/05/2025 08/05/2024 Diabetes: Annual GFR (Glomerular Filtration Rate) 08/24/2025 08/24/2024, 08/05/2024 Hypertension/CHF/CAD Annual BMP Blood Test 08/24/2025 08/24/2024, 08/05/2024 Lung Cancer Screening (Low Dose CT) 02/11/2026 02/11/2025, 02/09/2024, 02/05/2024, Additional history exists Colorectal Cancer Screening: Colonoscopy 01/07/2027 Cholesterol Screening (Lipid Panel) 08/05/2029 08/05/2024 DTaP,Tdap,and Td Vaccines (3 - Td or Tdap) 01/31/2035 01/31/2025, 01/12/2023, 06/09/2018 HIB Vaccines Aged Out No [...] age to complete this topic Meningococcal B Vaccine Aged Out No l onger eligible based on patient's age to complete this topic RSV Immunization Patients Under 20 months Aged Out No longer eligible based on patient's age to complete this topic Varicella Vaccines Aged Out No longer eligible based on patient's age to complete this topic Goals Goal Patient Goal Type Associated Problems Recent Progress Patient-Stated? Author <enter goal here> General On track( 025 3:26 PM EDT) Yes Laura Donovan, OT Note: OT PATIENT GOAL HAVE LESS PAIN WITH DAILY ACTIVITIES Procedures Procedure Name Priority Date/Time Associated Diagnosis Comments CT LUNG SCREENING Routine 02/11/2025 9:5 0 AM EDT Encounter for screening for lung cancer Current smoker XR HAND 3+ VIEWS BILAT Routine 01/12/2025 4:15 PM EDT Chronic hand pain, unspecified laterality PROSTATE SPECIFIC ANTIGEN SCREEN Routine 12/23/2024 11:54 AM EDT Screening for prostate cancer COMPREHENSIVE METABOLIC PANEL Routine 08/24/2024 1:25 PM EST Monoclonal paraproteinemia Chronic kidney disease (CKD) stage G3a/A1, moderately decreased glomerular filtration rate (GFR) between 45-59 mL/min/1.73 square meter and albuminuria creatinine ratio les* ([facility] V24, [facility] V28) Uric acid nephrolithiasis MICROALBUMIN CREATININE URINE RATIO Routine 08/05/2024 3:03 PM EST Diabetes mellitus, latent HEMOGLOBIN A1C Routine 08/05/2024 3:03 PM EST Diabetes mellitus, latent LIPID PANEL WITH REFLEX TO DIRECT LDL Routine 08/05/2024 3:03 PM EST Diabetes mellitus, latent from Last 3 Months or Most Recently Relevant to Health Maintenance Results * CT Lung Screening (02/11/2025 9:50 AM EDT) Anatomical Region Laterality Modality Chest Computed Tomogra phy 02/15/2025 4:58 PM EDT Impressions 02/15/2025 5:08 PM EDT Lung RADS 2. Guidelines recommend repeat low-dose screening CT in 12 months. -------- FINAL REPORT -------- Dictated By: Bernabe Leal Dictated Date: 02/15/2025 16:58 ET Assigned Physician: Bernabe Leal Reviewed and Electronically Signed By: Bernabe Leal Signed Date: 02/15/2025 17:08 ET Workstation ID: [id number] Transcribed By: Self Edit Transcribed Date: 02/15/2025 16:58 ET Narrative 02/15/2025 5:08 PM EDT PROCEDURE: Low-dose CT of the chest without intravenous contrast. TECHNIQUE: Low-dose CT of the chest without intravenous contrast administration. Coronal and sagittal reformats and MIP reconstructions were created. Dose length product: 106 mGy-cm. HISTORY: Lung cancer screening, >= 20 pk-yr smoking history, risk factor(s) (Age >= 50y) Lung cancer screening, >=20 pk yr current smoker (Age 50-80y) COMPARISON: 02/05/2024. FINDINGS: Lungs/pleura: The central airways are clear and normal in caliber. Scattered calcified granulomas. Scattered stable small bilateral pulmonary nodules measuring 3 mm or less. No new suspicious nodule. No pleural effusion or pneumothorax. Mediastinum/derick: Stable enlarged left internal mammary lymph node measuring 8 x 6 mm, series 4 image 37. Stable 8 mm right tracheoesophageal groove node, series 4 image 22. No appreciable hilar lymphadenopathy on limited noncontrast evaluation. Vasculature: Normal caliber pulmonary arteries. 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 Otherwise unremarkable appearance of the aorta and great vessels. Cardiac: Normal heart size. Moderate coronary artery calcification. Chest wall: No axillary or supraclavicular lymphadenopathy. Limited abdomen: Unremarkable. Bones: Mild degenerative changes of the spine and glenohumeral joints. Procedure Note Bernabe Leal MD - 02/15/2025 PROCEDURE: Low-dose CT of the chest without intravenous contrast. TECHNIQUE: Low-dose CT of the chest without intravenous contrastadministration. Coronal and sagittal reformats and MIP reconstructionswere created. Dose length product: 106 mGy-cm. HISTORY: Lung cancer screening, >= 20 pk-yr smoking history, riskfactor(s) (Age >= 50y) Lung cancer screening, >=20 pk yr current smoker (Age 50-80y) COMPARISON: 02/05/2024. FINDINGS: Lungs/pleura: The central airways are clear and normal in caliber.Scattered calcified granulomas. Scattered stable small bilateralpulmonary nodules measuring 3 mm or less. No new suspicious nodule. Nopleural effusion or pneumothorax. Mediastinum/derick: Stable enlarged left internal mammary lymph nodemeasuring 8 x 6 mm, series 4 image 37. Stable 8 mm righttracheoesophageal groove node, series 4 image 22. No appreciable hilarlymphadenopathy on limited noncontrast evaluation. Vasculature: Normal caliber pulmonary arteries. Anomalous origin of leftvertebral artery from the aortic arch. Otherwise unremarkable appearanceof the aorta and great vessels. Cardiac: Normal heart size. Moderate coronary artery calcification. Chest wall: No axillary or supraclavicular lymphadenopathy. Limited abdomen: Unremarkable. Bones: Mild degenerative changes of the spine and glenohumeral joints. IMPRESSION: Lung RADS 2. Guidelines recommend repeat low-dose screening CT in 12months. -------- FINAL REPORT -------- Dictated By: Bernabe Leal Dictated Date: 02/15/2025 16:58 ET Assigned Physician: Bernabe Leal Reviewed and Electronically Signed By: Bernabe Leal Signed Date: 02/15/2025 17:08 ET Workstation ID: [id number] Transcribed By: Self Edit Transcribed Date: 02/15/2025 16:58 ET us Rona Mendenhall MD [facility] [place] PROCEDURES Final Result * XR Hand 3+ Views bilat (01/12/2025 4:15 PM EDT) Anatomical Region Laterality Modality Upper Extremities, Hand Bilateral Radiogra phic Imaging 01/12/2025 6:42 PM EDT Impressions 01/12/2025 6:43 PM EDT No acute fracture or dislocation of the bilateral hands. -------- FINAL REPORT -------- Dictated By: Varun Torres Dictated Date: 01/12/2025 18:42 ET Assigned Physician: Varun Torres Reviewed and Electronically Signed By: Varun Trores Signed Date: 01/12/2025 18:43 ET Workstation ID: [id number] Transcribed By: Self Edit Transcribed Date: 01/12/2025 18:42 ET Narrative 01/12/2025 6:43 PM EDT HISTORY: difficulty making fist TECHNIQUE: AP, lateral, and oblique radiographs of the bilateral hands COMPARISON: None FINDINGS: There is normal mineralization with no evidence of fracture or malalignment. The visualized articulations are normal. No significant soft tissue swelling is identified. Procedure Note Varun Torres MD - 01/12/2025 HISTORY: difficulty making fist TECHNIQUE: AP, lateral, and oblique radiographs of the bilateral hands COMPARISON: None FINDINGS: There is normal mineralization with no evidence of fracture ormalalignment. The visualized articulations are normal. No significantsoft tissue swelling is identified. IMPRESSION: No acute fracture or dislocation of the bilateral hands. -------- FINAL REPORT -------- Dictated By: Varun Torres Dictated Date: 01/12/2025 18:42 ET Assigned Physician: Varun Torres Reviewed and Electronically Signed By: Varun Torres Signed Date: 01/12/2025 18:43 ET Workstation ID: [id number] Transcribed By: Self Edit Transcribed Date: 01/12/2025 18:42 ET us Moris Benedict MD IMG XR PROCEDURES Final Result * Prostate specific antigen screen (12/23/2024 11:54 AM EDT) PSA 1.02 0.00 - 4.00 ng/mL LAB CHEMISTRY METHOD 12/23/2024 3:05 PM EDT [facility] Blood Venous blood specimen / Unknown Venipuncture / Unknown 12/23/2024 11:54 AM EDT 12/23/2024 11:54 AM EDT Narrative [facility] - 12/23/2024 3:05 PM EDT The Siemens Advia Centaur Chemiluminescent Immunoassay is used. Results obtained with different assay methods or kits cannot be used interchangeably. Results cannot be interpreted as absolute evidence of the presence or absence of malignant disease. us Moris Benedict MD LAB BLOOD ORDERABLES Final Res ult [facility] [address] [place] [address], * (ABNORMAL) Comprehensive metabolic panel (08/24/2024 1:25 PM EST) Sodium 138 133 - 145 mmol/L LAB CHEMISTRY METHOD 08/24/2024 4:14 PM [facility] Potassium 4.4 3.5 - 5.5 mmol/L LAB CHEMISTRY METHOD 08/24/2024 4:14 PM [facility] Chloride 101 96 - 110 mmol/L LAB CHEMISTRY METHOD 08/24/2024 4:14 PM [facility] CO2 32 21 - 32 mmol/L LAB CHEMISTRY METHOD 08/24/2024 4:14 PM [facility] Anion Gap 5 3 - 11 LAB CHEMISTRY METHOD 08/24/2024 4:14 PM [facility] Glucose 148(H) 70 - 100 mg/dL LAB CHEMISTRY METHOD 08/24/2024 4:14 PM [facility] BUN 18 5 - 25 mg/dL LAB CHEMISTRY METHOD 08/24/2024 4:14 PM [facility] Creatinine 1.46(H) 0.70 - 1.30 mg/dL LAB CHEMISTRY METHOD 08/24/2024 4:14 PM [facility] eGFR 53(L) >=60 mL/min/1. 73m2 LAB CHEMISTRY METHOD 08/24/2024 4:14 PM [facility] Comment:Calculation based on the Chronic Kidney Disease Epidemiology Collaboration (CKD-EPI) equation refit without adjustment for race. BUN/Creatinine Ratio 12.3 LAB CHEMISTRY METHOD 08/24/2024 4:14 PM [facility] [facility] Calcium 9.8 8.5 - 10.5 mg/dL LAB CHEMISTRY METHOD 08/24/2024 4:14 PM [facility] AST (SGOT) 17 10 - 42 unit/L LAB CHEMISTRY METHOD 08/24/2024 4:14 PM [facility] ALT (SGPT) 21 10 - 60 unit/L LAB CHEMISTRY METHOD 08/24/2024 4:14 PM [facility] Alkaline Phosphatase 176(H) 42 - 121 unit/L LAB CHEMISTRY METHOD 08/24/2024 4:14 PM [facility] Total Protein 8.5(H) 6.0 - 8.0 g/dL LAB CHEMISTRY METHOD 08/24/2024 4:14 PM [facility] Albumin 3.9 3.2 - 5.0 g/dL LAB CHEMISTRY METHOD 08/24/2024 4:14 PM [facility] Total Bilirubin 0.5 0.0 - 1.4 mg/dL LAB CHEMISTRY METHOD 08/24/2024 4:14 PM [facility] Blood Venous blood specimen / Unknown Venipuncture / Unknown 08/24/2024 1:25 PM EST 08/24/2024 1:25 PM EST us Angel Enrique MD LAB BLOOD ORDERABLES Final R esult [facility] [address] [place] [address], * (ABNORMAL) Lipid panel with reflex to direct LDL (08/05/2024 3:03 PM EST) Cholesterol 190 0 - 200 mg/dL LAB CHEMISTRY METHOD 08/05/2024 6:41 PM [facility] Triglycerides 242(H) 0 - 150 mg/dL LAB CHEMISTRY METHOD 08/05/2024 6:41 PM [facility] HDL 38(L) >=40 mg/dL LAB CHEMISTRY METHOD 08/05/2024 6:41 PM [facility] LDL Calculated 104(H) 0 - 100 mg/dL LAB CHEMISTRY METHOD 08/05/2024 6:41 PM [facility] VLDL Cholesterol Salvador 48.4 mg/dL LAB CHEMISTRY METHOD 08/05/2024 6:41 PM [facility] Non HDL Chol. (LDL+VLDL) 152(H) <145 mg/dL LAB CHEMISTRY METHOD 08/05/2024 6:41 PM [facility] Chol/HDL Ratio 5.0(H) 0.0 - 4.4 LAB CHEMISTRY METHOD 08/05/2024 6:41 PM [facility] Blood Venous blood specimen / Unknown Venipuncture / Unknown 08/05/2024 3:03 PM EST 08/05/2024 3:03 PM EST us Moris Benedict MD LAB BLOOD ORDERABLES Final Res ult [facility] [address] [place] [address], * (ABNORMAL) Microalbumin creatinine urine ratio (08/05/2024 3:03 PM EST) Creatinine, Urine 150.0 mg/dL LAB CHEMISTRY METHOD 08/05/2024 7:09 PM [facility] Microalb, Ur 92.1(H) 0.0 - 29.0 mg/L LAB CHEMISTRY METHOD 08/05/2024 7:09 PM [facility] Microalb/Crea t Ratio 61(H) <30 mg/g creat LAB CHEMISTRY METHOD 08/05/2024 7:09 PM EST [facility] Urine Urine specimen obtained by clean catch procedure / Unknown Non-blood Collection / Unknown 08/05/2024 3:03 PM EST 08/05/2024 3:03 PM EST us Moris Benedict MD LAB URINE ORDERABLES Final Res ult Performing Organization Address City/[facility]/ZIP Co de Phone Number [facility] [address] [place] [address], [place] [phone] * (ABNORMAL) Hemoglobin A1c (08/05/2024 3:03 PM EST) Hemoglobin A1C 6.5(H) <6.5 % LAB CHEMISTRY METHOD 08/05/2024 9:16 PM EST [facility] Mean Bld Glu Estim. 140 mg/dL LAB CHEMISTRY METHOD 08/05/2024 9:16 PM EST [facility] Blood Venous blood specimen / Unknown Venipuncture / Unknown 08/05/2024 3:03 PM EST 08/05/2024 3:03 PM EST us Moris Benedict MD LAB BLOOD ORDERABLES Final Res ult Performing Organization Address City/[facility]/ZIP Co de Phone Number [facility] [address] [place] [address], [place] [phone] from Last 3 Months or Most Recently Relevant to Health Maintenance Insurance [facility] MEDICARE Member Subscriber Plan / Payer (Ef fective 2018-Present) Name:GUERLINE GAMBLE Relation to Subscriber:Self Name:Guerline Hogan Payer ID:[id number] Group ID:[id number] Type:Not on file Address: [place] [facility] [place] [id number] Care Teams Coal Mill Operator Relationship Specialty Start Date End Date Moris Benedict MD [address] [place] [id number] PCP - General Internal Medicine 01/10/15
--- OUTSIDE RECORDS SUMMARY | 2025-03-09 15:14 | XMS_ITS | Clinical Summary ---
Author Organization [facility] Address [address] [place], [place] [id number] Phone Care Team Providers Care Practical Nurse Name Role Phone Moris Benedict MD Primary Care Provider + Allergies Active Allergy Reactions Criticality Noted Date Comments Aspirin 02/02/2024 Gabapentin 02/02/2024 Ibuprofen 02/02/2024 Oxycodone 02/02/2024 Medications ipratropium-albuter oL (COMBIVENT RESPIMAT) 20-100 mcg/actuation Mist Inhale 1 puff into the lungs every 8 (eight) hours as needed. Active ammonium lactate (AMLACTIN) 12 % cream 3 Active atorvastatin (LIPITOR) 80 MG tablet Take 80 mg by mouth daily. Active FLUoxetine (PROZAC) 40 MG capsule Take 40 mg by mouth daily. Active COMBIVENT RESPIMAT 20-100 mcg/actuation Mist INHALE 1 PUFF INTO THE LUNGS EVERY 6 HOURS NEEDED FOR WHEEZING Active metoprolol succinate (TOPROL-XL) 25 MG 24 hr tablet Take 12.5 mg by mouth 2 (two) times a day. Active metroNIDAZOLE (FLAGYL) 500 MG tablet Take 500 mg by mouth every 8 (eight) hours. 4 Active omeprazole (PRILOSEC) 20 MG capsule Take 20 mg by mouth daily. Active potassium citrate (UROCIT-K) 15 mEq SR tablet Take 15 mEq by mouth daily. Active traZODone (DESYREL) 50 MG tablet TAKE 1 TO 2 TABLETS BY MOUTH EVERY DAY NEEDED FOR SLEEP 4 Active ANORO ELLIPTA 62.5-25 mcg/actuation diskus inhaler Inhale 1 puff into the lungs daily. Active potassium bicarbonate (K-LYTE) 25 MEQ disintegrating tablet Take 1 tablet (25 mEq total) by mouth daily. 90 tablet 4 4 Active allopurinol (ZYLOPRIM) 300 MG tablet Take 1 tablet (300 mg total) by mouth daily. 90 tablet 4 4 Active Social History Tobacco Use Types Packs/Day Years [...] on file Sexual Orientation Not on file Plan of Treatment Health Maintenance Due Date Last Done Comments Adult Td,Tdap Booster 1959 CREATININE LEVEL 1959 LIPID PANEL 1959 POTASSIUM LEVEL 1959 DEPRESSION SCREENING 1971 SMOKING Hx and SMOKELESS TOB ACCO SCREENING 10/12/1972 HEPATITIS C SCREENING 10/12/1977 HIV ONE-TIME SCREENING (18-6 5 YEARS) 10/12/1977 COLOGUARD 10/12/2004 COLONOSCOPY 10/12/2004 COLORECTAL CANCER SCREENING 10/12/2004 FIT TEST 10/12/2004 FOBT 10/12/2004 SIGMOIDOSCOPY 10/12/2004 VIRTUAL COLONOSCOPY 10/12/2004 PNEUMOCOCCAL VACCINES (50+ y ears) (1 of 1 - PCV) 10/12/2009 ZOSTER VACCINES (1 of 2) 10/12/2009 INFLUENZA VACCINE (#1) 2025 COVID-19 VACCINE ( - 2023-2 5 season) 2025 RSV VACCINE (1 - 1-dose 75+ series) 10/12/2034 HEPATITIS A VACCINES Aged Out No long er eligible based on patient's age to complete this topic HIB VACCINES Aged Out No longer eligi ble based on patient's age to complete this topic MENINGOCOCCAL VACCINES (ACWY) Aged Out No longer eligible based on patient's age to complete this topic MENINGOCOCCAL VACCINES (B) Aged Out N o longer eligible based on patient's age to complete this topic Medical Devices Not on file Insurance CARE MEDICARE REPLACEMENT MEDICARE REPLACEMENT CARE MEDICARE REPLACEMENT MEDICARE REPLACEMENT MEDICARE REPLACEMENT MEDICARE REPLACEMENT Care Teams Practical Nurse Relationship Specialty Start Date End Date Moris Benedict MD [address] [place] [id number] PCP - General Internal Medicine 01/21/24 Additional Source Comments The information contained in this document represents components of the legal health record. It is not the complete legal health record.[facility]
== END 2025-03-09 14:00 | disposition home or self-care (01) ==
LOC: HO.HKASLDS 13:59
PROVIDERS: Visit Provider Internal Medicine Nephrology
DX: Z13.89 Encounter for screening for other disorder (principal)

== ENCOUNTER 2025-03-14 10:16 | Outpatient (AMB) | payer OTHER, SELFPAY ==
--- NOTE | 2025-03-14 10:24 | HO.NEPHOV ---
Vital Signs 03/14/25 10:30 Height 5 ft 8 in Weight 214 lb 6 oz BMI 32.6 BP 132/74 Blood Pressure Location Lt brachial Position Sitting Pulse 102 H Pulse Source Pulse Oximeter Pulse Oximetry (%) 93 Oxygen Delivery Method Room Air Intake Visit Reasons: 6mon follow-up w/labs-Conf Account Resolution Analyst Required: No Accompanied by: Self / Same As Patient Allergies hydrochlorothiazide Allergy (Unknown, Verified 03/14/25 10:) EDEMA ibuprofen (From MOTRIN) Allergy (Unknown, Verified 03/14/25 10:) AFFECTS KIDNEYS,SEVERE REACTION acetaminophen Allergy (Verified 03/14/25 10:) Unknown clonidine Allergy (Verified 03/14/25 10:) Unknown gabapentin Allergy (Verified 03/14/25 10:) Unknown melatonin Allergy (Verified 03/14/25:) Unknown naproxen Allergy (Verified 03/14/25 10:) Unknown oxycodone Allergy (Verified 03/14/25 10:) Unknown quetiapine Allergy (Verified 03/14/25 10:) Unknown HPI Comments Details: Anshul was seen in follow-up of his mild chronic kidney disease and recurrent nephrolithiasis. He still has ongoing renal stone issue. He follows up with a urologist. He has not tolerated chlorthalidone in the past(he thinks it is causing him pedal edema). He continues to take potassium citrate. He does not have any fever, suprapubic pain, flank pain, hematuria, nausea, vomiting, shortness of breath, pedal edema, orthostatic symptoms at this visit. He is compliant with his medications. He keeps himself hydrated well. He avoids nonsteroidal anti-inflammatory medications. He was [place] [facility] but he is not taking it( concerned about side effects). [facility] Medical History (Updated 10/20/23 @ 14:27 by Miguel Patricia MD) Renal cyst Hypertension Calculus of kidney Chronic kidney disease, stage 2 (mild) Surgical History History of neck surgery History of eye surgery H/O endoscopy H/O colonoscopy History of tonsillectomy History of kidney surgery Family History Mother Hypertension Father Hypertension Social History Alcohol intake: never Patient Tobacco Use Status: Never used Tobacco Review of Systems Const All systems reviewed & are unremarkable except as noted in HPI and below Physical Exam Const General: comfortable and no acute distress Orientation/consciousness: patient oriented x3 HEENT Head: Yes normocephalic Mouth: Normal oral and palatal mucosa present Eyes EOM: EOMs intact bilaterally Neck Neck: Yes supple Resp Auscultation: clear to auscultation bilaterally Cardio Jugular venous distension: no JVD Rate: regular rate GI Palpation (GI): Soft to palpation Auscultation: normal bowel sounds General: Yes no CVA tenderness Back/Spine/Pelvis Back: no CVA tenderness Skin General skin exam: no rashes or lesions noted Neuro General: patient oriented x3 and moves all extremities Extrem General: Yes no pedal edema Results Reviewed Nephrology Results: Sodium, (135-145) 142 mmol/L 10/20/23 Potassium, (3.3-5.1) 4.4 mmol/L 10/20/23 Chloride, (96-108) 104 mmol/L 10/20/23 Carbon Dioxide, (22-29) 27 mmol/L 10/20/23 BUN, (9-16) 15 mg/dL 10/20/23 Creatinine, (0.5-1.4) 1.37 mg/dL 10/20/23 Calcium, (8.4-10.2) 10.1 mg/dL 10/20/23 Assessment & Plan Assessment & Plan (1) Chronic kidney disease, stage 2 (mild): Code(s): N18.2 - Chronic kidney disease, stage 2 (mild) Category: Medical (2) Calculus of kidney: Code(s): N20.0 - Calculus of kidney Category: Medical (3) Renal cyst: Code(s): N28.1 - Cyst of kidney, acquired Category: Medical Plan Anshul has mild CKD which had been stable at baseline. He has recurrent nephrolithiasis. He had multiple ESWL 's. He has not tolerated hydrochlorothiazide or chlorthalidone in the past(he feels both of them are causing leg swellings). He is on potassium citrate. He doesn't want any higher dose. He follows up with urologist. He should cut back animal protein in the diet . He should maintain low-salt diet. He is maintaining good hydration. He is avoiding nonsteroidal anti-inflammatory medications. His blood pressure has been at goal. He is not known to have any significant proteinuria. I did not make any medication changes today. labs ordered. All his questions and concerns were addressed. Orders: Orders Creatinine 6 Months N18.2 - Chronic kidney disease, stage 2 (mild), N20.0 - Calculus of kidney, N28.1 - Cyst of kidney, acquired Electrolytes 6 Months N18.2 - Chronic kidney disease, stage 2 (mild), N20.0 - Calculus of kidney, N28.1 - Cyst of kidney, acquired Calcium 6 Months N18.2 - Chronic kidney disease, stage 2 (mild), N20.0 - Calculus of kidney, N28.1 - Cyst of kidney, acquired Blood Urea Nitrogen 6 Months N18.2 - Chronic kidney disease, stage 2 (mild), N20.0 - Calculus of kidney, N28.1 - Cyst of kidney, acquired Protein Creatinine Ratio, Ur 6 Months N18.2 - Chronic kidney disease, stage 2 (mild), N20.0 - Calculus of kidney, N28.1 - Cyst of kidney, acquired Coding Level of Care Code Est Pt Level 4 (64720) Diagnoses Chronic kidney disease, stage 2 (mild) N18.2 Calculus of kidney N20.0 Renal cyst N28.1
[2025-03-14 10:30] VITALS: BP 132/74; PULSE 102; O2SAT 93; BMI 32.6
--- OUTSIDE RECORDS SUMMARY | 2025-03-14 12:03 | XMS_ITS | Clinical Summary ---
Author Organization [facility] Address [address] [place], [place] [phone] Phone Care Team Providers Care Lawn Service Manager Name Role Phone Moris Benedict MD Primary [...] REPLACEMENT MEDICARE REPLACEMENT MEDICARE REPLACEMENT Care Teams Lawn Service Manager Relationship Specialty Start Date End Date Moris Benedict MD [address] [place] [phone] PCP - General Internal Medicine 01/21/24 Additional Source Comments The information contained in this document represents components of the legal health record. It is not the complete legal health record.[facility]
--- OUTSIDE RECORDS SUMMARY | 2025-03-14 12:03 | XMS_ITS | Encounter Summary ---
Author Organization [facility] Address [address] [place] [address] Phone Care Team Providers Care Screenplay Writer Name Role Phone Moirs Benedict MD Primary Care Provider + Encounter Details Date Type Department Care Team (Late st Contact Info) Description 02/02/[address] [facility] [address] [facility], [address], [address] [place] [address] Social History Tobacco Use Types Packs/Day Years [...] on filedocumented in this encounter Care Teams Screenplay Writer Relationship Specialty Start Date End Date Moris Benedict MD [address] [place] [id number] PCP - General Internal Medicine 01/21/24 documented as of this encounter Additional Source Comments The information contained in this document represents components of the legal health record. It is not the complete legal health record.[facility]
--- OUTSIDE RECORDS SUMMARY | 2025-03-14 12:03 | XMS_ITS | Clinical Summary ---
Author Organization [facility] Address [address] [place] [address] Care Team Providers Care Underwriting Account Representative Name Role Phone Moris Benedict MD Primary Care Provider Allergies Active Allergy Reactions Criticality Noted Date [...] age to complete this topic Care Teams Underwriting Account Representative Relationship Specialty Start Date End Date Moris Benedict MD PCP - General Internal Medicine 01/02/20
--- OUTSIDE RECORDS SUMMARY | 2025-03-14 12:03 | XMS_ITS | Clinical Summary ---
Author Organization [facility] Address [address] [place] [address] Care Team Providers Care Student Ministry Pastor Name Role Phone Sofie Rojas PA-C Primary Care Provider [phone] Source Comments PLEASE NOTE, if this patient is a minor, it may be UNLAWFUL to discuss sensitive information that is contained in these records (such as FAMILY PLANNING, MENTAL HEALTH or SUBSTANCE ABUSE) with the minor patient's parent or other person without the patient's specific authorization.[facility] Allergies Active Allergy Reactions Criticality Noted Date Comments Clonidine 06/12/2014 Gabapentin 06/12/2014 Ibuprofen 05/11/2013 Melatonin 06/12/2014 Quetiapine 06/12/2014 Medications caneIndication s:Chronic kidney disease DX: Chronic low back pain 1 Device 0 3 Active polyethylene glycol 3350,bulk, gran by miscellaneous (misc) route. Active tens deviceIndicati ons:Back pain Dx: Chronic LBP, DDD. L5-S1 1 Device 0 4 Active TENS UNIT ELECTRODES (TENS UNITS ELECTRODES PADS) 2.2 X 2.5 Indications:B ack pain Dx: Chronic Low Back Pain, DDD L5-S1 4 Each 11 4 Active zolpidem (AMBIEN) 10 mg tabletIndicati ons:Insomnia Take 1 Tab by mouth nightly at bedtime as needed for sleep. PER PSYCH. Take immediately before bedtime. 5 Active traZODone (DESYREL) 100 mg tablet TK 1 T PO D HS PRN FOR SLEEP 4 6 Active Potassium Citrate 15 mEq TbER TK 2 TS PO ONCE A DAY 5 6 Active FLUoxetine (PROZAC) 40 mg capsule TK ONE C PO QAM UTD 5 6 Active lidocaine 5 % ointIndication s:Chronic midline low back pain without sciatica Apply 1 Units topically once daily as needed (pain). 50 g 6 6 Active Active Problems Problem Noted Date Diagnosed Date Insomnia 09/18/2014 Overview (09/18/2014): ON PSYCH F/U. Anxiety and depression 07/02/2013 Overview (09/18/2014): PSYCH F/U AT [address] [place] [address] ROMAN. H/O Nephrolithiasis 06/09/2013 Overview (07/12/2014): H/o of Nephrolithiasis Evaluated by Nephro and Urology ([facility]) S/p Left Uteroscopy with stone removal May-Jun 2014. Stent placed, then removed Jun 27 2014 Lipoma of neck: lt supraclavicular area 06/09/20 13 Overview (06/09/2013): Has been evaluated By -Dr Luis A Duncan January 2013: Ordered CT? -Dr Roland ([facility]): September 2011: Given the option of surgery which patient refused. CKD (chronic kidney disease) 05/20/2013 Overview (05/20/2013): Pt follows with Bearing Inspector @ [facility] Nephrology Dr Miguel Patricia [phone] Had Renal Cyst Had AICHA 2ry to NSAIds and HCTZ: ATN: which resolved. (this was around november 2012) Last seen by Dr Rivera on May 2013: recommended BP goal 130/80, DASH diet, lifestyle modific. Back pain 05/11/2013 Overview (06/09/2013): Pt had MRI done on 03/21/2008: Minimal posterior disc bulging @ L4-5 w/o significant central canal or neural foraminal narrowing Done at [facility]. MRI Lumbar Spine at [facility] 06/16/12: Mild spondilitic changes within the caudal LS spine without central or foraminal stenosis He has been seen by -Dr Morsi Irby July 2012: he was offered injections which patient refused. Was not surgical candidate. There was nothing else beatrice could offered as per note. -[facility] in 2011 Depression 05/11/2013 Overview (06/09/2013): MDD Used to follow at [facility], Now with new therapist and psychiatric f/u at ... H/o Suicidal Ideation hospitalized at [facility] Feb 2013 h/o Thrombosed Penile Veins s/p excision 013 Overview (06/09/2013): Seen at [facility] Urology on December 2012 Pre-diabetes 11/07/2012 Overview (06/09/2013): A1C: 6.2% stress test results 04/09/2012 Overview (06/09/2013): Exercise Stress Test July 2011: normal but with poor exercise tolerance Nuclear Stress Test: Apr 2012 at [facility] Hosp: Normal perfusion imaging study. Preserved EF: 68% H/O colonoscopy 05/11/2009 Overview (11/30/2014): Last 2014, DUe on [address] Temple (GI[facility] GI associatesPt was DC from GI practice due to disagreement with Dr Temple. On 2006 had colonoscopy with polypectomy (6 removed). Path: TUBULAR ADENOMAS Fatty liver 12/11/2008 Overview (05/20/2013): U/S ABD SHOWED: diffuse fatty infiltration of the liver with foci of fatty sparing. Gastritis 06/25/2007 Overview (05/20/2013): Pt had EGD done that showed Esophagitis and Gastritis with erosion and fold thickening. Path showed Chronic gastritis and + H.pylori Family History Medical History Relation Name Comments Other (See Comments) Brother alzheim er (half brother) Heart Problems Father Cancer Paternal Grandfather Cancer Paternal Uncle Relation Name Status Comments Brother Alive Father Mother Alive Paternal Grandfather Paternal Uncle Son 1 Alive Son 2 Alive Social History Tobacco Use Types Packs/Day Years Used Date Smoking Tobacco: Some Days Cigarettes 0.3 20 Started: 03/15/1993; Last attempted to quit: 03/15/2013 Smokeless Tobacco: Never Tobacco Cessation:Counseling Given: Yes Alcohol Use Standard Drinks/Week Comments Yes 0 (1 standard drink = 0.6 oz pur e alcohol) social/ occasional Social Connections Answer Date Recorded Social Connections and Isolation 0 02/26/2019 Financial Resource Strain Answer Date R ecorded Financial Resource Strain 0 2018 Stress Answer Date Recorded Stress 0 02/26/2019 Physical Activity Answer Date Recorded Physical Activity 0 02/26/2019 Food Insecurity Answer Date Recorded Food 0 02/26/2019 Transportation Needs Answer Date Record ed Transportation 0 02/26/2019 Housing Stability Answer Date Recorded Housing 0 02/26/2019 Safety and Environment Answer Date Bassam rded Safety 0 02/26/2019 Utilities Answer Date Recorded Utilities 0 02/26/2019 Employment Answer Date Recorded Employment 0 02/26/2019 Sex and Gender Information Value Date Recorded Sex Assigned at Not on file Legal Sex Male 11:36 AM PDT Gender Identity Not on file Sexual Orientation Not on file Last Filed Vital Signs Vital Sign Reading Time Taken Comments Blood Pressure 124/80 12/12/2015 4:00 PM EDT Pulse 88 12/12/2015 4:00 PM EDT Temperature 37 C (98.6 F) 12/12/2015 4:00 PM EDT Respiratory Rate 16 12/12/2015 4:00 PM EDT Oxygen Saturation - - Inhaled Oxygen Concentration - - Weight 100.5 kg (221 lb 9.6 oz) 12/12/2015 4:00 PM EDT Height 170.2 cm (5' 7 ) 12/12/2015 4:00 PM EDT Body Mass Index 34.71 12/12/2015 4:00 PM EDT Plan of Treatment Not on file [place] Care Teams Student Ministry Pastor Relationship Specialty Start Date End Date Sofie Rojas PA-C [facility] [place] [address] PCP - General 08/31/18
--- OUTSIDE RECORDS SUMMARY | 2025-03-14 12:03 | XMS_ITS | Clinical Summary ---
Author Organization [facility] Address [address] [place] [address] Phone Care Team Providers Care Unified Communications Engineer Name Role Phone Moris Benedict MD Primary Care Provider [phone] Allergies Active Allergy Reactions Criticality Noted Date [...] disease 05/20/2013 Overview (10/18/2020): Pt follows with Dope Pourer @ [facility] Nephrology Dr Miguel Patircia [phone] Had Renal Cyst Had AICHA 2ry to [...] 09/18/2022 Overview (09/18/2022): Seen on U/S ([facility]) September 2019. CT scan performed at [facility] on 10/02/2020 reveals evidence of fatty infiltration of the liver which is unchanged . There is also finding of a small 3 mm lesion in the left lobe of the liver that is unchanged and most likely an incidental cyst . No specific follow-up was recommended. Ultrasound of the liver at [facility] dated 11/01/2020 reveals an anechoic mass within the left lobe of the liver measuring 5 x 4 x 5 mm. Subcapsular surface is smooth. No focal intrahepatic mass. No intrahepatic biliary ductal dilatation. CT scan performed at [facility] on 01/05/2021 reveals a 4 mm hypoattenuating [...] 07/02/2013 10/18/2020 Overview (10/18/2020): PSYCH F/U AT [address] [place] [address] ROMAN. Lipoma of skin and subcutane ous tissue of neck 06/09/2013 10/18/2020 Overview (10/18/2020): Has been evaluated By -Dr Luis A Duncan January 2013: Ordered CT? -Dr Roland ([facility]): September 2011: Given the option of surgery which patient refused. Back pain 05/11/2013 10/18/2020 Overview (10/18/2020): Pt had MRI done on 03/21/2008: Minimal posterior disc bulging @ L4-5 w/o significant central canal or neural foraminal narrowing Done at [facility]. MRI Lumbar Spine at [facility] 06/16/12: Mild spondilitic changes within the caudal LS spine without central or foraminal stenosis He has been seen by -Dr Moris Irby July 2012: he was offered injections which patient refused. Was not surgical candidate. There was nothing else [facility] could offered as per note. -[facility] in 2011 Disorder of urinary system 12/08/2012 0 10/18/2020 Overview (10/18/2020): Seen at [facility]rology on December 2012 Prediabetes 11/07/2012 10/18/2020 Overview (10/18/2020): A1C: 6.2% History of colonoscopy 05/11/200910/18 Overview (10/18/2020): Last 2014, DUe on [address] Temple [facility]GI[facility] associatesPt was DC from GI [...] age to complete this topic Insurance ([id number]) [facility] ([id number]) Care Teams Unified Communications Engineer Relationship Specialty Start Date End Date Moris Benedict MD PCP - General 07/16/20
== END 2025-03-14 10:58 | disposition home or self-care (01) ==
LOC: HO.HKAS 10:17
PROVIDERS: PCP Internal Medicine; Visit Provider Internal Medicine Nephrology
DX: N18.2 Chronic kidney disease, stage 2 (mild) (principal); N20.0 Calculus of kidney; N28.1 Cyst of kidney, acquired
CPT/HCPCS: 99214

== ENCOUNTER → 2025-03-14 10:16 | Outpatient (BNVA) | payer OTHER, SELFPAY | PROVIDERS: PCP Internal Medicine; Visit Provider Internal Medicine Nephrology | DX: I12.9 Hypertensive chronic kidney disease with stage 1 through stage 4 chronic kidney disease, or unspecified chronic kidney disease (principal); N18.2 Chronic kidney disease, stage 2 (mild); N20.0 Calculus of kidney; N28.1 Cyst of kidney, acquired | CPT/HCPCS: 99212 ==